=== PATIENT | female | born 1970 | race Two or more races ===

== ENCOUNTER 2019-05-14 05:36 | Emergency (ER) | payer MEDICARE, MEDICAID ==
[2019-05-14] MEDS ORDERED: METHOCARBAMOL 500 MG TABLET PO ONE (06:36)
[2019-05-14] MEDS ORDERED: LIDOCAINE 5% (700 MG) TRANSDERMAL ADH..PATCH TP ONE (06:37)
--- NOTE | 2019-05-14 06:45 | ER Document Report ---
HPI - HPI Patient complains to provider of: left buttocks pain Time Seen by Provider: 05/14/19 06:35 Pain Level: 5 Context: Patient is a 59-year-old female presents to the emergency department for left hip and buttocks pain. Patient is HIV positive, coronary artery disease, diabetes, degenerative disc disease, sees pain management for same. Patient states this evening she rolled over in bed and felt a muscle cramp in her left buttocks. Patient is complaining of generalized pain in her left buttocks radiating behind her left leg. Patient's denying any trauma or injury. Patient's denying any pain in the ASIS of her left hip. Patient's denying any numbness or tingling in any extremity. Patient's denying any urinary retention, loss of bowel or bladder. Patient states she did take 10 mg hydrocodone and a 15 mg morphine prior to ar rival to the emergency room. - REPRODUCTIVE Reproductive: DENIES: : - DERM Skin Color: Normal Past Medical History - General Information source: Patient - Social History Smoking Status: Current Every Day Smoker Family History: Reviewed & Not Pertinent Patient has suicidal ideation: No Patient has homicidal ideation: No - Past Medical History Cardiac Medical History: Reports: Hx Heart Attack Pulmonary Medical History: Reports: Hx COPD Endocrine Medical History: Reports: Hx Diabetes Mellitus Type 2 Renal/ Medical History: Denies: Hx Peritoneal Dialysis Vertical Provider Document - CONSTITUTIONAL Agree With Documented VS: Yes Notes: GENERAL: Alert, interacts well. No acute distress. HEAD: Normocephalic, atraumatic. EYES: Pupils equal, round, and reactive to light. Extraocular movements intact. ENT: Oral mucosa moist, tongue midline. NECK: Full range of motion. Supple. Trachea midline. LUNGS: Clear to auscultation bilaterally, no wheezes, rales, or rhonchi. No respiratory distress. HEART: Regular rate and rhythm. No murmur ABDOMEN: Soft, non-tender. Non-distended. Bowel sounds present in all 4 quadrants. EXTREMITIES: Moves all 4 extremities spontaneously. No edema, normal radial and dorsalis pedis pulses bilaterally. No cyanosis. 5 out of 5 strength noted all 4 extremities. No pain upon palpation bilateral ASIS. BACK: no cervical, thoracic, lumbar midline tenderness. No saddle anesthesia, normal distal neurovascular exam. Left paraspinal pain going into the left buttocks noted. NEUROLOGICAL: Alert and oriented x3. Normal speech. cranial nerves II through XII grossly intact PSYCH: Normal affect, normal mood. SKIN: Warm, dry, normal turgor. No rashes or lesions noted. - INFECTION CONTROL TRAVEL OUTSIDE OF THE [place] IN LAST 30 DAYS: No Course - Re-evaluation Re-evalutation: 05/14/19 06:40 Presentation of a well appearing patient complaining of acute on chronic back pain. No rapid progression of symptoms, systemic symptoms including fevers, chills, weight loss, history of recent bacterial infection, bilateral symptoms, numbness, weakness, difficulty walking, urinary retention or bowel incontinence, personal history of cancer, known AAA. Patient admits to previous IV drug abuse but states she has not used" over 10 years." Exam is without point tenderness over vertebral bodies, pulsatile abdominal mass, and patient has symmetric and intact lower extremity strength, sensation, and reflexes without clonus. 2+ symmetric medial malleolar and dorsalis pedis pulses Based on history and physical, I have a very low suspicion of a concerning etiology of pain including epidural compression syndrome, spinal infection, transverse myelitis, malignancy, abdominal aortic aneurysm, renal colic, acute lower extremity claudication, neurogenic claudication, ankylosing spondylitis, or other intra-abdominal process. Due to absence of concerning risk factors in history and physical as well as absence of rapidly progressive, severe, or bilateral symptoms, would like to defer imaging at this point, although balance staff inspector already ordered hip XRAY via protocol. Hip X-Ray 05/14/19 00:00 IMPRESSION: No evidence of acute osseous injury involving the pelvis or left hip. There is a 6 x 5 mm triangular-shaped calcification inferior to the left ischial tuberosity which may be related to chronic injury. Patient has already taken 10 mg hydrocodone and 15 mg of morphine prior to arrival to the emergency room. Patient states she is allergic to Motrin, aspirin. Discussed use of Robaxin and Lidoderm patches. At this time will discharge with return precautions and follow-up recommendations. Verbal discharge instructions given a the bedside and opportunity for questions given. Medication warnings reviewed. Patient is in agreement with this plan and has verbalized understanding of return precautions and the need for primary care follow-up in the next 24-72 hours. This medical record was dictated with voice recognizing software. There may be grammatical, syntax errors that are unintended. - Vital Signs Vital signs: Temp Pulse Resp BP Pulse Ox 97.9 F 102 H 19 95/61 L 97 05/14/19 05:41 05/14/19 05:41 05/14/19 06:01 05/14/19 06:00 05/14/19 06:01 Discharge - Discharge Clinical Impression: Left low back pain Condition: Stable Disposition: HOME, SELF-CARE Instructions: Chronic Back Pain ([facility]), Low Back Pain ([facility]) Additional Instructions: As we discussed you have been seen and treated in the emergency department for your left back and buttocks pain. Please make sure you are taking pain medications as prescribed. Please also make sure you are using muscle relaxers as prescribed. Please also buy [id number] Lidoderm patches for generalized pain relief. Please follow-up with your primary care provider in the next 24 to 48 hours. Please also follow-up with orthopedics, phone numbers will be provided. Please return to the emergency room for any further concerns. Prescriptions: Methocarbamol [Robaxin 500 mg Tablet] 1,000 mg PO TID #30 tablet Referrals: VICTORIA GEORGE MD [ACTIVE STAFF] - Follow up as needed
--- NOTE | 2019-05-14 07:33 | RADIOLOGY REPORT (SQ) ---
EXAM: X-ray hip two or more views CLINICAL DATA: 49-year-old female with tenderness TECHNICAL DATA: Two x-ray views of the pelvis and left hip were performed on 05/14/2019 at 6:49 AM. COMPARISONS: None FINDINGS: There is no evidence of fracture or dislocation. There is no significant arthritis or degenerative change. No focal lytic or sclerotic bone lesions are seen. There is a 6 x 5 mm triangular-shaped calcification inferior to the left ischial tuberosity. This may be related to chronic injury. Bone mineralization is normal. No acute soft tissue abnormalities are identified. IMPRESSION: No evidence of acute osseous injury involving the pelvis or left hip. There is a 6 x 5 mm triangular-shaped calcification inferior to the left ischial tuberosity which may be related to chronic injury.
[2019-05-14 08:04] VITALS: BP 104/55
== END 2019-05-14 08:04 | disposition home or self-care (01) ==
LOC: ER 05:36
DX: G89.29 Other chronic pain (principal); M54.5 Low back pain; M25.552 Pain in left hip; F17.200 Nicotine dependence, unspecified, uncomplicated; B20 Human immunodeficiency virus [HIV] disease; I25.10 Atherosclerotic heart disease of native coronary artery without angina pectoris; E11.9 Type 2 diabetes mellitus without complications; J44.9 Chronic obstructive pulmonary disease, unspecified; I25.2 Old myocardial infarction
CPT/HCPCS: 73502; A9270; 99283

== ENCOUNTER 2019-09-15 12:52 | Inpatient (IN) | payer MEDICARE, MEDICAID ==
[2019-09-15] MEDS ORDERED: NORMAL SALINE 1000 ML 1,000 ML IV ONE ×2 (13:11→18:00)
--- NOTE | 2019-09-15 13:13 | ER Document Report ---
ED Medical Screen (RME) - General Chief Complaint: Diarrhea Stated Complaint: DIARRHEA,DIZZINESS Time Seen by Provider: 09/15/19 13:08 Mode of Arrival: Wheelchair Information source: Patient Notes: This 49-year-old female with no past history reports to the emergency department with severe diarrhea. Reports this morning she has been incontinent of stool 4 times. Reports she has been vomiting diarrhea since . Denies recent antibiotics. Denies recent trip overseas. Denies past medical history of Crohn's or IBS. Denies trauma. Denies fever. Patient reports she is trying to drink fluids. Blood pressure low patient tachy. Patient reports this is never happened to her before. I have greeted and performed a rapid initial assessment of this patient. A comprehensive ED assessment and evaluation of the patient, analysis of test results and completion of the medical decision making process will be conducted by additional ED providers. Dictation of this chart was performed using voice recognition software; therefore, there may be some unintended grammatical errors. TRAVEL OUTSIDE OF THE [place] IN LAST 30 DAYS: No - Related Data Allergies/Adverse Reactions: aspirin Allergy (Verified 05/14/19 07:34) Penicillins Allergy (Verified 05/14/19 07:34) Past Medical History - Past Medical History Cardiac Medical History: Reports: Hx Heart Attack Pulmonary Medical History: Reports: Hx COPD Endocrine Medical History: Reports: Hx Diabetes Mellitus Type 2 Renal/ Medical History: Denies: Hx Peritoneal Dialysis Physical Exam - Vital signs Vitals: Temp Pulse Resp BP Pulse Ox 97.6 F 124 H 18 79/52 L 94 09/15/19 12:56 09/15/19 12:56 09/15/19 12:56 09/15/19 12:56 09/15/19 12:56 Course - Vital Signs Vital signs: Temp Pulse Resp BP Pulse Ox 97.6 F 124 H 18 79/52 L 94 09/15/19 12:56 09/15/19 12:56 09/15/19 12:56 09/15/19 12:56 09/15/19 12:56
[2019-09-15] MEDS ORDERED: ONDANSETRON HCL INJ/PF 4 MG/2 ML SDV IV ONE (13:29)
[2019-09-15] MEDS ORDERED: NORMAL SALINE 1000 ML 2,000 ML IV ONE (13:29)
--- NOTE | 2019-09-15 13:51 | ER Document Report ---
ED General - General Chief Complaint: Low Blood Pressure Stated Complaint: DIARRHEA,DIZZINESS Time Seen by Provider: 09/15/19 13:08 Mode of Arrival: Wheelchair Notes: Ms. Rajput is a 49-year-old female with HIV on HAART, hyperlipidemia, previous CA w/ [address] and diabetes presenting to the ED for diarrhea and dizziness. Patient states the diarrhea began but acutely worsened today. Between and Tuesday she had a total of 6 episodes of diarrhea. She also had 2 episodes of vomiting at that point in time. However today alone, she is had at least 6 episodes of nonbloody diarrhea. Patient states her last CD4 count was 900 and her viral load was undetectable. She denies any known ill contacts or recent travel. She states she was placed on antibiotics in the beginning of August for dental infection (amoxicillin). TRAVEL OUTSIDE OF THE [place] IN LAST 30 DAYS: No - Related Data Allergies/Adverse Reactions: aspirin Allergy (Verified 09/15/19 14:05) Penicillins Allergy (Verified 09/15/19 14:05) iv dye Allergy (Uncoded 09/15/19 14:05) Past Medical History - General Information source: Patient - Social History Smoking Status: Current Every Day Smoker Frequency of alcohol use: None Drug Abuse: None Family History: Reviewed & Not Pertinent Patient has suicidal ideation: No Patient has homicidal ideation: No - Past Medical History Cardiac Medical History: Reports: Hx Heart Attack, Hx Hypercholesterolemia Pulmonary Medical History: Reports: Hx COPD Endocrine Medical History: Reports: Hx Diabetes Mellitus Type 2 Renal/ Medical History: Denies: Hx Peritoneal Dialysis Past Surgical History: Reports: Hx Cardiac Catheterization, Hx Cardiac Surgery - stent Physical Exam - Vital signs Vitals: Temp Pulse Resp BP Pulse Ox 97.6 F 124 H 18 79/52 L 94 09/15/19 12:56 09/15/19 12:56 09/15/19 12:56 09/15/19 12:56 09/15/19 12:56 Course - Re-evaluation Re-evalutation: Patient is ill-appearing but nontoxic. Initial vitals notable for tachycardia and hypotension. Differential diagnosis includes sepsis, dehydration, electrolyte abnormality, immunocompromise state 09/15/19 13:48 Blood cultures, lactic acid were added onto basic labs. Patient ordered for 2 L of fluid. Plan to obtain CT abdomen pelvis with p.o. contrast only given her allergy to IVP. Patient also ordered for Zofran for nausea. Given the patient's immunocompromised state (HIV), stool cultures and stool samples were also ordered for other pathogenic process. 14:25 Patient ordered for a total of 3 L of IV fluids. She already completed 2 L at this point in time. CBC does not show significant leukocytosis or left shift. H&H is stable and patient appears to be hemoconcentrated with hemoglobin greater than 15. CMP notable for creatinine of 1.97 with a BUN of 29 consistent with dehydration. Patient has no known history of kidney disease and her GFR currently is 27. UA pending. Patient feels improved in terms of her dizziness. Given her initially persistent hypotension, pt ordered for broad spec abx w/ ceftaz/flagyl. 09/15/19 15:10 Discussed with admitting provider Duong. Recommended admission to Dr. Hsieh. 09/15/19 15:[address] Hsieh. 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 09/15/19 16:[address] negative for acute abdominal process. No significant lactic acidosis. Likely hypotension related to pre-renal dehydration and volume loss. 09/15/19 16:[address] Hsieh again. 09/15/19 16:[address] Hsieh. - Vital Signs Vital signs: Temp Pulse Resp BP Pulse Ox 97.6 F 124 H 11 L 72/41 L 97 09/15/19 13:29 09/15/19 12:56 09/15/19 14:01 09/15/19 14:00 09/15/19 14:01 - Laboratory Result Diagrams: 09/15/19 13:15 09/15/19 13:15 Laboratory results interpreted by me: 09/15/19 09/15/19 09/15/19 13:15 13:15 14:12 Hgb 15.9 H BUN 29 H Creatinine 1.97 H Est GFR ( Amer) 32 L Est GFR (MDRD) Non-Af 27 L Glucose 122 H AST 134 H Urine Protein 100 H Urine Ketones TRACE H Urine Bilirubin SMALL H Urine Urobilinogen 2.0 H Ur Leukocyte Esterase TRACE H - EKG Interpretation by Ak EKG shows normal: Sinus rhythm, [place], QRS Complexes, ST-T Waves Rate: Normal Voltage: Decreased voltage, Throughout Heart block present: 1st Degree When compared to previous EKG there are: Previous EKG unavailable Critical Care Note - Critical Care Note Total time excluding time spent on procedures (mins): 45 - Multiple etiologies considered including infectious such as sepsis, dehydration, electrolyte abnormality, and acute intra-abdominal process. Patient required multiple evaluation given persistent hypotension. Broad-spectrum antibiotics as well as 3 L of fluids administered. Discharge - Discharge Clinical Impression: Nausea vomiting and diarrhea, WAI (acute kidney injury), Dehydration Hypotension Qualifiers: Hypotension type: hypotension due to hypovolemia Qualified Code(s): I95.89 - Other hypotension Condition: Good Disposition: ADMITTED INPATIENT Admitting Provider: Jori (Hospitalist) Unit Admitted: IMCU ED Sepsis - Sepsis Documentation Sepsis Patient: No - Vital Signs Interpretation: Normal - Cardiovascular Peripheral Pulse Strength: Normal Capillary refill: < 3 seconds Rhythm: Regular Heart Sounds: Normal auscultation
[2019-09-15 13:57] LABS: ABSOLUTE LYMPHOCYTES (AUTO) 1.4 10^3/uL (0.5-4.7); ABSOLUTE MONOCYTES (AUTO) 0.7 10^3/uL (0.1-1.4); ABSOLUTE NEUT (AUTO) 5.5 10^3/uL (1.7-8.2); BASOPHILS % (AUTO) 0.3 % (0-2); EOSINOPHILS % (AUTO) 0.3 % (0-6); HEMATOCRIT 45.8 % (36.0-47.0); HEMOGLOBIN 15.9 g/dL (12.0-15.5); LYMPHOCYTES % (AUTO) 18.6 % (13-45); MEAN CORPUSCULAR HEMOGLOBIN 32.6 pg (27.0-33.4); MEAN CORPUSCULAR HGB CONC 34.7 g/dL (32.0-36.0); MEAN CORPUSCULAR VOLUME 94 fl (80-97); PLATELET COUNT 203 10^3/uL (150-450); RED BLOOD COUNT 4.86 10^6/uL (3.72-5.28); RED CELL DISTRIBUTION WIDTH 12.6 % (11.5-14.0); SEGMENTED NEUTROPHILS % (AUTO) 71.8 % (42-78); TOTAL CELLS COUNTED % (AUTO) 100 %; WHITE BLOOD COUNT 7.6 10^3/uL (4.0-10.5)
[2019-09-15 14:10] LABS: ALBUMIN 4.2 g/dL (3.5-5.0); ALKALINE PHOSPHATASE 69 U/L (38-126); ANION GAP 15 (5-19); ASPARTATE AMINO TRANSFERASE 134 U/L (14-36); BILIRUBIN,DIRECT 0.2 mg/dL (0.0-0.4); BILIRUBIN,TOTAL 0.4 mg/dL (0.2-1.3); BLOOD UREA NITROGEN 29 mg/dL (7-20); CALCIUM 9.3 mg/dL (8.4-10.2); CARBON DIOXIDE 24 mmol/L (22-30); CHLORIDE 99 mmol/L (98-107); GLUCOSE 122 mg/dL (75-110); POTASSIUM 4.3 mmol/L (3.6-5.0); TOTAL PROTEIN 7.1 g/dL (6.3-8.2)
[2019-09-15] MEDS ORDERED: CEFTAZIDIME INJ 1 GM VIAL IV ONE (14:16)
[2019-09-15] MEDS: METRONIDAZOLE 500 MG/NS RTU 500 MG/100 ML RTUPB IV SCH ×2 (14:50→17:59)
--- NOTE | 2019-09-15 14:54 | EKG REPORT ---
SEVERITY:- ABNORMAL ECG - SINUS RHYTHM FIRST DEGREE AV BLOCK LOW VOLTAGE IN FRONTAL LEADS NONSPECIFIC T ABNORMALITIES, ANT-LAT LEADS : Confirmed by: Rad Jaimes MD 15-Sep-2019 14:53:35
[2019-09-15 15:19] LABS: APPEARANCE,URINE CLOUDY; BILIRUBIN,URINE SMALL (NEGATIVE); COLOR,URINE AMBER; GLUCOSE, URINE NEGATIVE (NEGATIVE); KETONES,URINE TRACE mg/dL (NEGATIVE); LEUKOCYTE ESTERASE,URINE TRACE (NEGATIVE); NITRITE,URINE NEGATIVE (NEGATIVE); PROTEIN,URINE 100 mg/dL (NEGATIVE); URINE SPECIFIC GRAVITY 1.028
--- NOTE | 2019-09-15 16:10 | RADIOLOGY REPORT (SQ) ---
EXAM DESCRIPTION: CT ABD/PELVIS ORAL ONLY COMPLETED DATE/TIME: 09/15/2019 3:57 pm REASON FOR STUDY: hypotensive, abd pain, vomiting diarrhea COMPARISON: None. TECHNIQUE: CT scan of the abdomen and pelvis performed with oral contrast and no intravenous contras t. Images reviewed with lung, soft tissue, and bone windows. Reconstructed coronal and sagittal MPR i mages reviewed. All images stored on PACS. All CT scanners at this facility use dose modulation, iterative reconstruction, and/or weight based d osing when appropriate to reduce radiation dose to as low as reasonably achievable (ALARA). [facility]: Dose Right [facility]: CareDose [facility]: Dose Right [facility]: Teradose 4D [facility]: Smart Mixpanel RADIATION DOSE: CT Rad equipment meets quality standard of care and radiation dose reduction techniq ues were employed. CTDIvol: 7.9 mGy. DLP: 424 mGy-cm.mGy. LIMITATIONS: None. FINDINGS: LOWER CHEST: No significant findings. No nodules or infiltrates. NON-CONTRASTED LIVER, SPLEEN, ADRENALS: Evaluation limited by lack of IV contrast. No identified sign ificant masses. PANCREAS: No masses. No peripancreatic inflammatory changes. GALLBLADDER: Surgically absent. RIGHT KIDNEY AND URETER: No solid masses. No significant calcification. No hydronephrosis or hydroure ter. LEFT KIDNEY AND URETER: No solid masses. No significant calcification. No hydronephrosis or hydrouret er. AORTA AND RETROPERITONEUM: No aneurysm. No retroperitoneal masses or adenopathy. BOWEL AND PERITONEAL CAVITY: No obvious masses or inflammatory changes. No free fluid. APPENDIX: Not visualized. PELVIS, BLADDER, AND ABDOMINAL WALL: No abnormal pelvic masses. No abdominal wall hernias. Bladder un remarkable. BONES: No significant findings. OTHER: No other significant finding. IMPRESSION: NO SIGNIFICANT OR ACUTE ABDOMINAL PROCESS. TECHNICAL DOCUMENTATION: JOB ID: [id number] Quality ID # [id number]: Final reports with documentation of one or more dose reduction techniques (e.g., Au tomated exposure control, adjustment of the mA and/or kV according to patient size, use of iterative reconstruction technique) 2010 [employer]- All Rights Reserved Reading location - IP/workstation name: [facility]
[2019-09-15] MEDS ORDERED: ACETAMINOPHEN 325 MG TABLET PO PRN (17:51)
[2019-09-15] MEDS ORDERED: MAG HYDROX/AL HYDROX/SIMETH SUSP 30 ML UDCUP PO PRN (17:51)
[2019-09-15] MEDS ORDERED: ONDANSETRON HCL INJ/PF 4 MG/2 ML SDV IV PRN (17:51)
[2019-09-15] MEDS ORDERED: TEMAZEPAM 15 MG CAPSULE PO PRN (17:51)
[2019-09-15] MEDS ORDERED: DEXTROSE 50%-WATER 25 GM/50 ML DISP.SYRIN IV PRN ×2 (18:01)
[2019-09-15] MEDS ORDERED: GLUCAGON,HUMAN RECOMB 1 MG INJ IM PRN (18:01)
[2019-09-15] MEDS ORDERED: DEXTROSE 40% GEL 15 GM TUBE PO PRN ×2 (18:01)
--- NOTE | 2019-09-15 18:07 | PDOC H&P ---
History of Present Illness Admission Date/PCP: 09/15/19 16:47 LETTY BIRMINGHAM NP Patient complains of: Diarrhea History of Present Illness: BELGICA YADAV is a 49 year old female HIV-positive who presents with diarrhea. Patient states 2 episodes of vomiting and 6 episodes of nonbloody diarrhea over the last 2 days. Patient states her last CD4 count was 900 viral load was undetectable. Patient states she was placed on antibiotics again in August for dental infection however that has had no other complications. Patient is on HAART for her HIV and has a history of hyperlipidemia as well. She does have a history of diabetes and CAD as well. She has had no treatment prior to arrival all oral intakes been aggravating factor. Past Medical History Cardiac Medical History: Reports: Myocardial Infarction, Hyperlipidema Pulmonary Medical History: Reports: Chronic Obstructive Pulmonary Disease (COPD) Endocrine Medical History: Reports: Diabetes Mellitus Type 2 Past Surgical History Past Surgical History: Reports: Cardiac Catheterization Social History Information Source: Patient Lives with: Family Smoking Status: Current Every Day Smoker Electronic Cigarette use?: No Frequency of Alcohol Use: None Hx Recreational Drug Use: No Drugs: None Hx Prescription Drug Abuse: No - Advance Directive Resuscitation Status: Full Code Family History Family History: DM, Hypertension Parental Family History Reviewed: Yes Children Family History Reviewed: Yes Sibling(s) Family History Reviewed.: Yes Medication/Allergy Home Medications: Methocarbamol [Robaxin 500 mg Tablet] 1,000 mg PO TID #30 tablet 05/14/19 Allergies/Adverse Reactions: aspirin Allergy (Verified 09/15/19 14:05) Penicillins Allergy (Verified 09/15/19 14:05) iv dye Allergy (Uncoded 09/15/19 14:05) Review of Systems Constitutional: ABSENT: chills, fever(s), headache(s), weight gain, weight loss Eyes: ABSENT: visual disturbances Ears: ABSENT: hearing changes Cardiovascular: ABSENT: chest pain, dyspnea on exertion, edema, orthropnea, palpitations Respiratory: ABSENT: cough, hemoptysis Gastrointestinal: PRESENT: diarrhea, nausea, vomiting. ABSENT: abdominal pain, constipation, hematemesis, hematochezia Genitourinary: ABSENT: dysuria, hematuria Musculoskeletal: ABSENT: joint swelling Integumentary: ABSENT: rash, wounds Neurological: PRESENT: dizziness. ABSENT: abnormal gait, abnormal speech, confusion, focal weakness, syncope Psychiatric: ABSENT: anxiety, depression, homidical ideation, suicidal ideation Endocrine: ABSENT: cold intolerance, heat intolerance, polydipsia, polyuria Hematologic/Lymphatic: ABSENT: easy bleeding, easy bruising Physical Exam Vital Signs: Temp Pulse Resp BP Pulse Ox 97.7 F 87 15 87/64 L 97 09/15/19 17:42 09/15/19 17:42 09/15/19 17:42 09/15/19 17:42 09/15/19 17:30 Intake & Output 09/14/19 09/15/19 09/16/19 06:59 06:59 06:59 Intake Total 3100 Balance 3100 Weight 68.039 kg General appearance: PRESENT: no acute distress, well-developed, well-nourished Head exam: PRESENT: atraumatic, normocephalic Eye exam: PRESENT: conjunctiva pink, EOMI, PERRLA. ABSENT: scleral icterus Ear exam: PRESENT: normal external ear exam Mouth exam: PRESENT: moist, tongue midline Neck exam: ABSENT: carotid bruit, JVD, lymphadenopathy, thyromegaly Respiratory exam: PRESENT: clear to auscultation constantino. ABSENT: rales, rhonchi, wheezes Cardiovascular exam: PRESENT: RRR. ABSENT: diastolic murmur, rubs, systolic murmur Pulses: PRESENT: normal dorsalis pedis pul Vascular exam: PRESENT: normal capillary refill GI/Abdominal exam: PRESENT: normal bowel sounds, soft. ABSENT: distended, guarding, mass, organolmegaly, rebound, tenderness Rectal exam: PRESENT: deferred Extremities exam: PRESENT: full ROM. ABSENT: calf tenderness, clubbing, pedal edema Neurological exam: PRESENT: alert, awake, oriented to person, oriented to place, oriented to time, oriented to situation, CN II-XII grossly intact. ABSENT: motor sensory deficit Psychiatric exam: PRESENT: appropriate affect, normal mood. ABSENT: homicidal ideation, suicidal ideation Skin exam: PRESENT: dry, intact, warm. ABSENT: cyanosis, rash Results Laboratory Results: 09/15/19 13:15 09/15/19 13:15 09/15/19 09/15/19 09/15/19 13:15 13:15 14:12 WBC 7.6 RBC 4.86 Hgb 15.9 H Hct 45.8 MCV 94 MCH 32.6 MCHC 34.7 RDW 12.6 Plt Count 203 Seg Neutrophils % 71.8 Sodium 137.8 Potassium 4.3 Chloride 99 Carbon Dioxide 24 Anion Gap 15 BUN 29 H Creatinine 1.97 H Est GFR ( Amer) 32 L Glucose 122 H Calcium 9.3 Total Bilirubin 0.4 AST 134 H Alkaline Phosphatase 69 Total Protein 7.1 Albumin 4.2 Lipase 58.2 Urine Color ANJANA Urine Appearance CLOUDY Urine pH 5.0 Ur Specific [place] 1.028 Urine Protein 100 H Urine Glucose (UA) NEGATIVE Urine Ketones TRACE H Urine Blood NEGATIVE Urine Nitrite NEGATIVE Ur Leukocyte Esterase TRACE H Urine WBC (Auto) 17 Urine RBC (Auto) 2 09/15/19 13:15 Troponin I < 0.012 Impressions: Abdomen/Pelvis CT 09/15/19 13:29 IMPRESSION: NO SIGNIFICANT OR ACUTE ABDOMINAL PROCESS. Assessment and Plan - Diagnosis (1) WAI (acute kidney injury) Is this a current diagnosis for this admission?: Yes Plan: 09/15/2019-admit to IMCU. Patient did receive 3 L normal saline bolus in the ER. I will continue normal saline at 175 mL/h. Repeat BMP in a.m. Initial creatinine and BUN 1.9 and 29. (2) Dehydration Is this a current diagnosis for this admission?: Yes Plan: 09/15/2019-see 1 (3) Hypotension Qualifiers: Hypotension type: hypotension due to hypovolemia Qualified Code(s): I95.89 - Other hypotension; E86.1 - Hypovolemia Is this a current diagnosis for this admission?: Yes Plan: 09/15/2019-I believe this secondary to dehydration. Patient has been adequately hydrated blood pressure seem to be titrating up. We will add low-dose vaso pressors as needed. (4) Nausea vomiting and diarrhea Is this a current diagnosis for this admission?: Yes Plan: 09/15/2019-C. difficile pending. Zofran for nausea and vomiting. Place patient on Cipro 400 mg IV twice daily and Flagyl 500 mg every 6 hours in case there is some component of colitis causing this diarrhea. (5) HIV positive Is this a current diagnosis for this admission?: Yes Plan: 09/15/2019-continue all home HIV medications once medication reconciliation has been completed - Time Time Spent with patient: 35 or more minutes - Inpatient Certification Based on my medical assessment, after consideration of the patient's comorbidities, presenting symptoms, or acuity I expect that the services needed warrant INPATIENT care.: Yes I certify that my determination is in accordance with my understanding of Medicare's requirements for reasonable and necessary INPATIENT services [42 CFR 412.3e].: Yes Medical Necessity: Significant Comorbidiites Make Outpatient Treatment Too Risky, Need Close Monitoring Due to Risk of Patient Decompensation, Need For IV Fluids, Need for IV Antibiotics
--- NOTE | 2019-09-15 18:46 | PDOC CONSULTATION ---
Consultation Consult Date: 09/15/19 Attending physician:: STEPHANIE GAMBLE Provider Consulted: NELA SANDERS Consult reason:: Concern for hypotension/possible need for ICU History of Present Illness Admission Date/PCP: 09/15/19 16:47 LETTY BIRMINGHAM NP History of Present Illness: BELGICA YADAV is a 49 year old female who complains of weakness and fatigue. The patient also has vague lower abdominal pain and has been having numerous loose bowel movements for the last few days. Of note, she is HIV positive on HAART therapy and being followed regularly. Upon arrival to the ER today she was orthostatic and her initial BP was in the 60's. With hydration and remaining in the supine position her SBP improved to the 90's eventually and her MAP remains >65. She was admitted to the hospitalist service but there was concern that she may be septic and might require ICU intervention. Past Medical History Cardiac Medical History: Reports: Myocardial Infarction, Hyperlipidema Pulmonary Medical History: Reports: Chronic Obstructive Pulmonary Disease (COPD) Endocrine Medical History: Reports: Diabetes Mellitus Type 2 Psychiatric Medical History: Reports: Depression Past Surgical History Past Surgical History: Reports: Cardiac Catheterization Social History Lives with: Family Smoking Status: Current Every Day Smoker Cigarettes Packs Per Day: 1 Electronic Cigarette use?: No Frequency of Alcohol Use: None Hx Recreational Drug Use: No Drugs: None Hx Prescription Drug Abuse: No - Advance Directive Resuscitation Status: Full Code Family History Family History: DM, Hypertension Parental Family History Reviewed: No Children Family History Reviewed: Unknown Sibling(s) Family History Reviewed.: Unknown Medication/Allergy Home Medications: Methocarbamol [Robaxin 500 mg Tablet] 1,000 mg PO TID #30 tablet 05/14/19 Allergies/Adverse Reactions: aspirin Allergy (Verified 09/15/19 18:33) Anaphylaxis chicken derived Allergy (Verified 09/15/19 18:33) Anaphylaxis egg Allergy (Verified 09/15/19 18:34) Anaphylaxis Egg Derived Allergy (Verified 09/15/19 18:34) Anaphylaxis Penicillins Allergy (Verified 09/15/19 18:33) Anaphylaxis turkey Allergy (Verified 09/15/19 18:34) Anaphylaxis iv dye Allergy (Uncoded 09/15/19 18:33) Anaphylaxis Review of Systems All systems: as per PMH Physical Exam Vital Signs: Temp Pulse Resp BP Pulse Ox 97.2 F 88 17 91/57 L 99 12/14/19 18:03 09/15/19 18:03 09/15/19 18:03 09/15/19 18:03 09/15/19 18:03 Intake & Output 09/14/19 09/15/19 09/16/19 06:59 06:59 06:59 Intake Total 3340 Output Total 0 Balance 3340 Weight 75.4 kg General appearance: PRESENT: no acute distress, well-developed, well-nourished Eye exam: PRESENT: conjunctiva pink, EOMI, PERRLA. ABSENT: scleral icterus Ear exam: PRESENT: normal external ear exam Mouth exam: PRESENT: dry mucosa Throat exam: ABSENT: post pharyngeal erythema Neck exam: PRESENT: full ROM. ABSENT: carotid bruit, JVD, lymphadenopathy, thyromegaly Respiratory exam: PRESENT: clear to auscultation constantino, symmetrical. ABSENT: accessory muscle use, rales, rhonchi, wheezes Cardiovascular exam: PRESENT: RRR. ABSENT: bradycardia, diastolic murmur, systolic murmur Pulses: PRESENT: normal radial pulses, normal dorsalis pedis pul, +2 pedal pulses bilateral Vascular exam: PRESENT: normal capillary refill. ABSENT: pallor GI/Abdominal exam: PRESENT: other - Soft, minimal tenderness over her bladder. No rebound, no guarding, no peritoneal signs. Rectal exam: PRESENT: deferred Extremities exam: PRESENT: full ROM. ABSENT: calf tenderness, joint swelling, pedal edema Musculoskeletal exam: PRESENT: full ROM. ABSENT: deformity Neurological exam: PRESENT: alert, awake, oriented to person, oriented to place, oriented to time, oriented to situation, CN II-XII grossly intact. ABSENT: motor sensory deficit Psychiatric exam: PRESENT: appropriate affect Skin exam: PRESENT: dry, warm Results Laboratory Results: 09/15/19 13:15 09/15/19 13:15 09/15/19 09/15/19 09/15/19 13:15 13:15 14:12 WBC 7.6 RBC 4.86 Hgb 15.9 H Hct 45.8 MCV 94 MCH 32.6 MCHC 34.7 RDW 12.6 Plt Count 203 Seg Neutrophils % 71.8 Sodium 137.8 Potassium 4.3 Chloride 99 Carbon Dioxide 24 Anion Gap 15 BUN 29 H Creatinine 1.97 H Est GFR ( Amer) 32 L Glucose 122 H Calcium 9.3 Total Bilirubin 0.4 AST 134 H Alkaline Phosphatase 69 Total Protein 7.1 Albumin 4.2 Lipase 58.2 Urine Color ANJANA Urine Appearance CLOUDY Urine pH 5.0 Ur Specific [place] 1.028 Urine Protein 100 H Urine Glucose (UA) NEGATIVE Urine Ketones TRACE H Urine Blood NEGATIVE Urine Nitrite NEGATIVE Ur Leukocyte Esterase TRACE H Urine WBC (Auto) 17 Urine RBC (Auto) 2 09/15/19 13:15 Troponin I < 0.012 Impressions: Abdomen/Pelvis CT 09/15/19 13:29 IMPRESSION: NO SIGNIFICANT OR ACUTE ABDOMINAL PROCESS. Assessment & Plan - Diagnosis (1) WAI (acute kidney injury) Is this a current diagnosis for this admission?: Yes Plan: As per primary. Continue with hydration and electrolyte monitoring. Baseline Cr. unknown. (2) Dehydration Is this a current diagnosis for this admission?: Yes Plan: Continue hydration as per primary team (3) HIV positive Is this a current diagnosis for this admission?: Yes Plan: As per primary team (4) Hypotension Qualifiers: Hypotension type: hypotension due to hypovolemia Qualified Code(s): I95.89 - Other hypotension; E86.1 - Hypovolemia Is this a current diagnosis for this admission?: Yes (5) Nausea vomiting and diarrhea Is this a current diagnosis for this admission?: Yes Plan: Zofran, Phenergan and hydration - Time Time Spent with patient: 30 Time Spent: 50 to 70 Minutes Medications reviewed and adjusted accordingly: Yes - Plan Summary Plan Summary: 49yo F with mild abdominal pain (though unimpressive exam and normal CT scan) in the setting of numerous loose stools and hypotension. As she is immunocompromised would be concerned for possible C-dificile infection despite normal WBC. Recommend stool testing. Would continue with hydration and may also consider cortisol test to determine if the patient has any evidence of adrenal insufficiency. No need for ICU level of care at this time. Thank you for this consult, we are available should her condition change.
[2019-09-15] MEDS: NORMAL SALINE 1000 ML 1,000 ML IV PRN (19:26)
[2019-09-15] MEDS: INSULIN REG, HUMAN 100 UNIT/ML 3 ML VIAL (PYX) SUBCUT SCH (21:08)
[2019-09-15] MEDS: CIPROFLOXACIN 400 MG/D5W RTU 400 MG/200 ML RTUPB IV SCH (21:13)
[2019-09-15] MEDS: PANTOPRAZOLE SODIUM 40 MG VIAL IV SCH (21:13)
[2019-09-15] MEDS: NICOTINE 21 MG/24 HR PATCH.TD24 TD SCH (21:13)
[2019-09-16] MEDS: METRONIDAZOLE 500 MG/NS RTU 500 MG/100 ML RTUPB IV SCH ×5 (01:16→23:51)
[2019-09-16] MEDS: NORMAL SALINE 1000 ML 1,000 ML IV PRN ×3 (03:15→23:51)
[2019-09-16] MEDS: HYDROMORPHONE HCL INJ/PF 2 MG/ML AMPULE IV PRN ×3 (03:16→19:32)
[2019-09-16 05:48] LABS: HEMATOCRIT 35.2 % (36.0-47.0); MEAN CORPUSCULAR HGB CONC 34.8 g/dL (32.0-36.0); MEAN CORPUSCULAR VOLUME 95 fl (80-97); PLATELET COUNT 134 10^3/uL (150-450); RED BLOOD COUNT 3.71 10^6/uL (3.72-5.28); RED CELL DISTRIBUTION WIDTH 12.4 % (11.5-14.0)
[2019-09-16 05:56] LABS: HEMOGLOBIN 12.2 g/dL (12.0-15.5)
[2019-09-16 05:59] LABS: PHOSPHORUS 3.5 mg/dL (2.5-4.5)
[2019-09-16] MEDS: INSULIN REG, HUMAN 100 UNIT/ML 3 ML VIAL (PYX) SUBCUT SCH ×4 (08:33→21:09)
--- NOTE | 2019-09-16 09:15 | PDOC PROGRESS REPORT ---
Subjective Progress Note for:: 09/16/19 Subjective:: 09/16/2019-no complaints this a.m. Reason For Visit: ACUTE KIDNEY INJURY, DIARRHEA, HIV Physical Exam Vital Signs: Temp Pulse Resp BP Pulse Ox 97.5 F 83 20 80/47 L 93 09/16/19 04:01 09/16/19 07:00 09/16/19 04:01 09/16/19 04:01 09/16/19 04:01 Intake & Output 09/15/19 09/16/19 09/17/19 06:59 06:59 06:59 Intake Total 5962 Output Total 0 Balance 5962 Weight 76.8 kg General appearance: PRESENT: no acute distress, well-developed, well-nourished Neck exam: ABSENT: carotid bruit, JVD, lymphadenopathy, thyromegaly Respiratory exam: PRESENT: clear to auscultation constantino. ABSENT: rales, rhonchi, wheezes Cardiovascular exam: PRESENT: RRR. ABSENT: diastolic murmur, rubs, systolic murmur Pulses: PRESENT: normal dorsalis pedis pul Vascular exam: PRESENT: normal capillary refill GI/Abdominal exam: PRESENT: normal bowel sounds, soft. ABSENT: distended, guarding, mass, organolmegaly, rebound, tenderness Extremities exam: PRESENT: full ROM. ABSENT: calf tenderness, clubbing, pedal edema Neurological exam: PRESENT: alert, awake, oriented to person, oriented to place, oriented to time, oriented to situation, CN II-XII grossly intact. ABSENT: motor sensory deficit Psychiatric exam: PRESENT: appropriate affect, normal mood. ABSENT: homicidal ideation, suicidal ideation Skin exam: PRESENT: dry, intact, warm. ABSENT: cyanosis, rash Results Laboratory Results: 09/16/19 05:10 09/15/19 13:15 09/15/19 09/15/19 09/15/19 03:22 13:15 13:15 WBC 7.6 RBC 4.86 Hgb 15.9 H Hct 45.8 MCV 94 MCH 32.6 MCHC 34.7 RDW 12.6 Plt Count 203 Seg Neutrophils % 71.8 Sodium 137.8 Potassium 4.3 Chloride 99 Carbon Dioxide 24 Anion Gap 15 BUN 29 H Creatinine 1.97 H Est GFR ( Amer) 32 L Glucose 122 H Calcium 9.3 Phosphorus Magnesium Total Bilirubin 0.4 AST 134 H Alkaline Phosphatase 69 Total Protein 7.1 Albumin 4.2 Lipase 58.2 Urine Color Urine Appearance Urine pH Ur Specific [place] Urine Protein Urine Glucose (UA) Urine Ketones Urine Blood Urine Nitrite Ur Leukocyte Esterase Urine WBC (Auto) Urine RBC (Auto) Stool for White Cells NO WBCs SEEN 09/15/19 09/16/19 09/16/19 14:12 05:10 05:10 WBC 4.0 RBC 3.71 L Hgb 12.2 D Hct 35.2 L MCV 95 MCH 33.0 MCHC 34.8 RDW 12.4 Plt Count 134 L Seg Neutrophils % Sodium Potassium Chloride Carbon Dioxide Anion Gap BUN Creatinine Est GFR ( Amer) Glucose Calcium Phosphorus 3.5 Magnesium 1.6 Total Bilirubin AST Alkaline Phosphatase Total Protein Albumin Lipase Urine Color ANJANA Urine Appearance CLOUDY Urine pH 5.0 Ur Specific [place] 1.028 Urine Protein 100 H Urine Glucose (UA) NEGATIVE Urine Ketones TRACE H Urine Blood NEGATIVE Urine Nitrite NEGATIVE Ur Leukocyte Esterase TRACE H Urine WBC (Auto) 17 Urine RBC (Auto) 2 Stool for White Cells 09/15/19 13:15 Troponin I < 0.012 Impressions: Abdomen/Pelvis CT 09/15/19 13:29 IMPRESSION: NO SIGNIFICANT OR ACUTE ABDOMINAL PROCESS. Assessment and Plan - Diagnosis (1) WAI (acute kidney injury) Is this a current diagnosis for this admission?: Yes Plan: 09/15/2019-admit to [facility]. Patient did receive 3 L normal saline bolus in the ER. I will continue normal saline at 175 mL/h. Repeat BMP in a.m. Initial creatinine and BUN 1.9 and 29. 09/16/2019-awaiting a.m. labs. I have decreased IV fluids 100 mL/h. I will make further changes based on diagnostic findings. (2) Dehydration Is this a current diagnosis for this admission?: Yes Plan: 09/15/2019-see 1 09/16/2019-see #1 (3) Hypotension Qualifiers: Hypotension type: hypotension due to hypovolemia Qualified Code(s): I95.89 - Other hypotension; E86.1 - Hypovolemia Is this a current diagnosis for this admission?: Yes Plan: 09/15/2019-I believe this secondary to dehydration. Patient has been adequately hydrated blood pressure seem to be titrating up. We will add low-dose vasopressors as needed. 09/16/2019-patient remains in the 80s 90 systolic range but asymptomatic. We will continue hydration and follow (4) Nausea vomiting and diarrhea Is this a current diagnosis for this admission?: Yes Plan: 09/15/2019-C. difficile pending. Zofran for nausea and vomiting. Place patient on Cipro 400 mg IV twice daily and Flagyl 500 mg every 6 hours in case there is some component of colitis causing this diarrhea. 09/16/2019-C. difficile pending. Continue current therapy including Flagyl. Make changes based on findings (5) HIV positive Is this a current diagnosis for this admission?: Yes Plan: 09/15/2019-continue all home HIV medications once medication reconciliation has been completed 09/16/2019-all HIV medications have been resumed - Time Time Spent with patient: 15-24 minutes - Inpatient Certification Based on my medical assessment, after consideration of the patient's comorbidities, presenting symptoms, or acuity I expect that the services needed warrant INPATIENT care.: Yes I certify that my determination is in accordance with my understanding of Medicare's requirements for reasonable and necessary INPATIENT services [42 CFR 412.3e].: Yes Medical Necessity: Need For IV Fluids, Need for IV Antibiotics
[2019-09-16] MEDS: CIPROFLOXACIN 400 MG/D5W RTU 400 MG/200 ML RTUPB IV SCH ×2 (09:20→21:18)
[2019-09-16] MEDS: PANTOPRAZOLE SODIUM 40 MG VIAL IV SCH ×2 (09:20→21:18)
[2019-09-16 09:40] LABS: ANION GAP 8 (5-19); BLOOD UREA NITROGEN 12 mg/dL (7-20); CALCIUM 7.3 mg/dL (8.4-10.2); CARBON DIOXIDE 19 mmol/L (22-30); CHLORIDE 112 mmol/L (98-107); GLUCOSE 74 mg/dL (75-110); POTASSIUM 3.7 mmol/L (3.6-5.0)
[2019-09-16 10:31] LABS: C DIFFICILE GDH NEGATIVE (NEGATIVE)
[2019-09-16] MEDS: VANCOMYCIN HCL INJ 500 MG VIAL PO SCH ×2 (15:13→23:51)
[2019-09-16] MEDS: DULOXETINE HCL 30 MG CAPSULE.DR PO SCH (17:15)
[2019-09-16] MEDS: ATORVASTATIN CALCIUM 20 MG TABLET PO SCH (21:17)
[2019-09-16] MEDS: QUETIAPINE FUMARATE 100 MG TABLET PO SCH (21:17)
[2019-09-16] MEDS: NICOTINE 21 MG/24 HR PATCH.TD24 TD SCH (21:18)
[2019-09-16] MEDS: DOXEPIN HCL 25 MG CAPSULE PO SCH (22:22)
[2019-09-17] MEDS ORDERED: VANCOMYCIN HCL INJ 500 MG VIAL ONE (05:21)
[2019-09-17] MEDS: METRONIDAZOLE 500 MG/NS RTU 500 MG/100 ML RTUPB IV SCH ×4 (05:53→23:15)
[2019-09-17] MEDS: VANCOMYCIN HCL INJ 500 MG VIAL PO SCH ×4 (05:54→23:15)
[2019-09-17 06:12] LABS: HEMATOCRIT 36.4 % (36.0-47.0); HEMOGLOBIN 12.8 g/dL (12.0-15.5); MEAN CORPUSCULAR HEMOGLOBIN 32.9 pg (27.0-33.4); MEAN CORPUSCULAR HGB CONC 35.1 g/dL (32.0-36.0); MEAN CORPUSCULAR VOLUME 94 fl (80-97); PLATELET COUNT 137 10^3/uL (150-450); RED BLOOD COUNT 3.88 10^6/uL (3.72-5.28); RED CELL DISTRIBUTION WIDTH 12.4 % (11.5-14.0)
[2019-09-17 06:37] LABS: ANION GAP 6 (5-19); BLOOD UREA NITROGEN 6 mg/dL (7-20); CALCIUM 7.8 mg/dL (8.4-10.2); CARBON DIOXIDE 25 mmol/L (22-30); CHLORIDE 111 mmol/L (98-107); GLUCOSE 99 mg/dL (75-110)
[2019-09-17] MEDS: INSULIN REG, HUMAN 100 UNIT/ML 3 ML VIAL (PYX) SUBCUT SCH ×4 (07:48→22:57)
[2019-09-17] MEDS: HYDROMORPHONE HCL INJ/PF 2 MG/ML AMPULE IV PRN ×2 (08:08→18:14)
[2019-09-17] MEDS ORDERED: CALCIUM GLUCONATE 1,000 MG in DEXTROSE 5%-WATER 50 ML IV ONE (09:33)
--- NOTE | 2019-09-17 09:38 | PDOC PROGRESS REPORT ---
Subjective Progress Note for:: 09/17/19 Subjective:: 09/16/2019-no complaints this a.m. 09/17/2019-no complaints Reason For Visit: ACUTE KIDNEY INJURY, DIARRHEA, HIV Physical Exam Vital Signs: Temp Pulse Resp BP Pulse Ox 97.9 F 73 17 142/92 H 100 09/17/19 07:31 09/17/19 07:31 09/17/19 07:31 09/17/19 07:31 09/17/19 07:31 Intake & Output 09/16/19 09/17/19 09/18/19 06:59 06:59 06:59 Intake Total 5962 3670 100 Output Total 0 600 Balance 5962 3070 100 Weight 76.8 kg 76.8 kg General appearance: PRESENT: no acute distress, well-developed, well-nourished Neck exam: ABSENT: carotid bruit, JVD, lymphadenopathy, thyromegaly Respiratory exam: PRESENT: clear to auscultation constantino. ABSENT: rales, rhonchi, wheezes Cardiovascular exam: PRESENT: RRR. ABSENT: diastolic murmur, rubs, systolic murmur Pulses: PRESENT: normal dorsalis pedis pul Vascular exam: PRESENT: normal capillary refill GI/Abdominal exam: PRESENT: normal bowel sounds, soft. ABSENT: distended, guarding, mass, organolmegaly, rebound, tenderness Extremities exam: PRESENT: full ROM. ABSENT: calf tenderness, clubbing, pedal edema Neurological exam: PRESENT: alert, awake, oriented to person, oriented to place, oriented to time, oriented to situation, CN II-XII grossly intact. ABSENT: motor sensory deficit Psychiatric exam: PRESENT: appropriate affect, normal mood. ABSENT: homicidal ideation, suicidal ideation Skin exam: PRESENT: dry, intact, warm. ABSENT: cyanosis, rash Results Laboratory Results: 09/17/19 05:14 09/17/19 05:14 09/15/19 09/16/19 09/17/19 03:22 05:10 05:14 WBC 5.0 RBC 3.88 Hgb 12.8 Hct 36.4 MCV 94 MCH 32.9 MCHC 35.1 RDW 12.4 Plt Count 137 L Sodium 138.5 Potassium 3.7 Chloride 112 H Carbon Dioxide 19 L Anion Gap 8 BUN 12 Creatinine 0.72 Est GFR ( Amer) > 60 Glucose 74 L Calcium 7.3 L Stl C.difficile Tox PCR POSITIVE 09/17/19 05:14 WBC RBC Hgb Hct MCV MCH MCHC RDW Plt Count Sodium 141.8 Potassium 4.0 Chloride 111 H Carbon Dioxide 25 Anion Gap 6 BUN 6 L Creatinine 0.58 Est GFR ( Amer) > 60 Glucose 99 Calcium 7.8 L Stl C.difficile Tox PCR 09/15/19 13:15 Troponin I < 0.012 Impressions: Abdomen/Pelvis CT 09/15/19 13:29 IMPRESSION: NO SIGNIFICANT OR ACUTE ABDOMINAL PROCESS. Assessment and Plan - Diagnosis (1) WAI (acute kidney injury) Is this a current diagnosis for this admission?: Yes Plan: 09/15/2019-admit to IMCU. Patient did receive 3 L normal saline bolus in the ER. I will continue normal saline at 175 mL/h. Repeat BMP in a.m. Initial creatinine and BUN 1.9 and 29. 09/16/2019-awaiting a.m. labs. I have decreased IV fluids 100 mL/h. I will make further changes based on diagnostic findings. 09/17/2019-renal function back to normal. DC IV fluids. Continue oral intake. (2) Dehydration Is this a current diagnosis for this admission?: Yes Plan: 09/15/2019-see 1 09/16/2019-see #1 09/17/2019-resolved stable. (3) Hypotension Qualifiers: Hypotension type: hypotension due to hypovolemia Qualified Code(s): I95.89 - Other hypotension; E86.1 - Hypovolemia Is this a current diagnosis for this admission?: Yes Plan: 09/15/2019-I believe this secondary to dehydration. Patient has been adequately hydrated blood pressure seem to be titrating up. We will add low-dose vasopressors as needed. 09/16/2019-patient remains in the 80s 90 systolic range but asymptomatic. We will continue hydration and follow 09/17/2019-resolved stable (4) Nausea vomiting and diarrhea Is this a current diagnosis for this admission?: Yes Plan: 09/15/2019-C. difficile pending. Zofran for nausea and vomiting. Place patient on Cipro 400 mg IV twice daily and Flagyl 500 mg every 6 hours in case there is some component of colitis causing this diarrhea. 09/16/2019-C. difficile pending. Continue current therapy including Flagyl. Ceasar jewell changes based on findings 09/17/2019-improved at this time. Stable (5) HIV positive Is this a current diagnosis for this admission?: Yes Plan: 09/15/2019-continue all home HIV medications once medication reconciliation has been completed 09/16/2019-all HIV medications have been resumed 09/17/2019-continue HIV medications (6) C. difficile colitis Is this a current diagnosis for this admission?: Yes Plan: 09/17/2019-vancomycin 250 mg p.o. every 6 hours and Flagyl 500 g IV every 6. (7) UTI (urinary tract infection) Is this a current diagnosis for this admission?: Yes Plan: 09/17/2019-Cipro 400 mg IV twice daily - Time Time Spent with patient: 15-24 minutes - Inpatient Certification Based on my medical assessment, after consideration of the patient's comorbidities, presenting symptoms, or acuity I expect that the services needed warrant INPATIENT care.: Yes I certify that my determination is in accordance with my understanding of Medicare's requirements for reasonable and necessary INPATIENT services [42 CFR 412.3e].: Yes Medical Necessity: Significant Comorbidiites Make Outpatient Treatment Too Risky, Need Close Monitoring Due to Risk of Patient Decompensation, Need for IV Antibiotics
[2019-09-17] MEDS: CARVEDILOL 3.125 MG TABLET PO SCH ×2 (09:57→22:57)
[2019-09-17] MEDS: ESTROGENS,CONJUGATED 0.625 MG TABLET PO SCH (09:57)
[2019-09-17] MEDS: PANTOPRAZOLE SODIUM 40 MG VIAL IV SCH ×2 (09:57→22:57)
[2019-09-17] MEDS: DULOXETINE HCL 30 MG CAPSULE.DR PO SCH ×2 (09:57→18:00)
[2019-09-17] MEDS ORDERED: CALCIUM GLUCONATE 1000 MG/10 ML INJ IV ONE (10:00)
[2019-09-17] MEDS ORDERED: ABACAVIR PO SCH (10:00)
[2019-09-17] MEDS ORDERED: RAMIPRIL 10 MG CAPSULE PO SCH (10:00)
[2019-09-17] MEDS ORDERED: DOLUTEGRAVIR PO SCH (10:00)
[2019-09-17] MEDS ORDERED: LAMIVUDI PO SCH (10:00)
[2019-09-17] MEDS ORDERED: [UNRECOGNIZED DRUG - OTHER] PO SCH (10:00)
[2019-09-17] MEDS: ATORVASTATIN CALCIUM 20 MG TABLET PO SCH (22:56)
[2019-09-17] MEDS: NICOTINE 21 MG/24 HR PATCH.TD24 TD SCH (22:56)
[2019-09-17] MEDS: QUETIAPINE FUMARATE 100 MG TABLET PO SCH (22:58)
[2019-09-17] MEDS: DOXEPIN HCL 25 MG CAPSULE PO SCH (22:58)
[2019-09-18 05:29] LABS: HEMATOCRIT 37.4 % (36.0-47.0); HEMOGLOBIN 13.1 g/dL (12.0-15.5); MEAN CORPUSCULAR HEMOGLOBIN 32.4 pg (27.0-33.4); MEAN CORPUSCULAR VOLUME 93 fl (80-97); PLATELET COUNT 154 10^3/uL (150-450); RED BLOOD COUNT 4.04 10^6/uL (3.72-5.28); RED CELL DISTRIBUTION WIDTH 12.2 % (11.5-14.0); WHITE BLOOD COUNT 6.3 10^3/uL (4.0-10.5)
[2019-09-18 05:54] LABS: ANION GAP 9 (5-19); BLOOD UREA NITROGEN 8 mg/dL (7-20); CALCIUM 8.5 mg/dL (8.4-10.2); CARBON DIOXIDE 25 mmol/L (22-30); CHLORIDE 105 mmol/L (98-107); GLUCOSE 106 mg/dL (75-110); POTASSIUM 3.9 mmol/L (3.6-5.0)
[2019-09-18] MEDS ORDERED: VANCOMYCIN HCL INJ 500 MG VIAL ONE (05:59)
[2019-09-18] MEDS: METRONIDAZOLE 500 MG/NS RTU 500 MG/100 ML RTUPB IV SCH ×3 (06:09→17:34)
[2019-09-18] MEDS: VANCOMYCIN HCL INJ 500 MG VIAL PO SCH ×3 (06:13→17:33)
[2019-09-18] MEDS: INSULIN REG, HUMAN 100 UNIT/ML 3 ML VIAL (PYX) SUBCUT SCH ×4 (07:24→21:15)
[2019-09-18] MEDS: CARVEDILOL 3.125 MG TABLET PO SCH ×2 (09:09→22:13)
[2019-09-18] MEDS: PANTOPRAZOLE SODIUM 40 MG VIAL IV SCH ×2 (09:09→22:12)
[2019-09-18] MEDS: DULOXETINE HCL 30 MG CAPSULE.DR PO SCH ×2 (09:09→17:33)
[2019-09-18] MEDS: ESTROGENS,CONJUGATED 0.625 MG TABLET PO SCH (09:10)
[2019-09-18] MEDS: HYDROMORPHONE HCL INJ/PF 2 MG/ML AMPULE IV PRN (15:45)
--- NOTE | 2019-09-18 18:03 | PDOC PROGRESS REPORT ---
Subjective Progress Note for:: 09/18/19 Subjective:: This is a 49 year old female with HIV, DM 2 and CAD who presented with diarrhea and vomiting. She is found to have acute renal failure. She was started on IV fluids. Stool studies also came back positive for C. difficile. This morning, she had one episode of watery, nonbloody stools. She says that the frequency has decreased compared to the past few days. She does report that she was recently placed on antibiotics for a throat and ear infection. She denies other acute complaints. Denies chest pain or shortness of breath. She denies dysuria, hematuria or urinary frequency. Reason For Visit: ACUTE KIDNEY INJURY, DIARRHEA, HIV Physical Exam Vital Signs: Temp Pulse Resp BP Pulse Ox 98.1 F 65 18 150/94 H 100 09/18/19 15:54 09/18/19 15:54 09/18/19 15:54 09/18/19 15:54 09/18/19 15:54 Intake & Output 09/17/19 09/18/19 09/19/19 06:59 06:59 06:59 Intake Total 3670 2480 200 Output Total 600 0 Balance 3070 2480 200 Weight 169 lb 5.04 oz 167 lb 8.821 oz General appearance: PRESENT: no acute distress, well-developed, well-nourished Head exam: PRESENT: atraumatic, normocephalic Eye exam: PRESENT: conjunctiva pink, EOMI, PERRLA. ABSENT: scleral icterus Ear exam: PRESENT: normal external ear exam Mouth exam: PRESENT: moist, tongue midline Neck exam: ABSENT: carotid bruit, JVD, lymphadenopathy, thyromegaly Respiratory exam: PRESENT: clear to auscultation constantino. ABSENT: rales, rhonchi, wheezes Cardiovascular exam: PRESENT: RRR. ABSENT: diastolic murmur, rubs, systolic murmur Pulses: PRESENT: normal dorsalis pedis pul GI/Abdominal exam: PRESENT: normal bowel sounds, soft. ABSENT: distended, guarding, mass, organolmegaly, rebound, tenderness Rectal exam: PRESENT: deferred Extremities exam: PRESENT: full ROM. ABSENT: calf tenderness, clubbing, pedal edema Neurological exam: PRESENT: alert, awake, oriented to person, oriented to place, oriented to time, oriented to situation, CN II-XII grossly intact. ABSENT: motor sensory deficit Results Laboratory Results: 09/18/19 05:06 09/18/19 05:06 09/18/19 09/18/19 05:06 05:06 WBC 6.3 RBC 4.04 Hgb 13.1 Hct 37.4 MCV 93 MCH 32.4 MCHC 35.0 RDW 12.2 Plt Count 154 Sodium 139.2 Potassium 3.9 Chloride 105 Carbon Dioxide 25 Anion Gap 9 BUN 8 Creatinine 0.54 Est GFR ( Amer) > 60 Glucose 106 Calcium 8.5 09/15/19 03:22 Stool - Stool - Final 09/15/19 03:22 Stool - Stool Stool Culture - Final NO SALMONELLA, SHIGELLA, CAMPYLOBACTER, OR E.COLI 0157 RECOVERED. NEGATIVE FOR SHIGA TOXINS 1&2. 09/15/19 13:15 Troponin I < 0.012 Impressions: Abdomen/Pelvis CT 09/15/19 13:29 IMPRESSION: NO SIGNIFICANT OR ACUTE ABDOMINAL PROCESS. Assessment and Plan - Diagnosis (1) WAI (acute kidney injury) Is this a current diagnosis for this admission?: Yes Plan: Prerenal from volume depletion. Resolved with IV fluids. (2) C. difficile colitis Is this a current diagnosis for this admission?: Yes Plan: Slightly improved. She had watery stool this morning but frequency has decreas ed. Continue vancomycin and Flagyl. (3) Dehydration Is this a current diagnosis for this admission?: Yes Plan: Improved. (4) HIV positive Is this a current diagnosis for this admission?: Yes Plan: Continue HAART. - Time Time Spent with patient: 25-34 minutes
[2019-09-18] MEDS: QUETIAPINE FUMARATE 100 MG TABLET PO SCH (22:12)
[2019-09-18] MEDS: ATORVASTATIN CALCIUM 20 MG TABLET PO SCH (22:12)
[2019-09-18] MEDS: NICOTINE 21 MG/24 HR PATCH.TD24 TD SCH (22:13)
[2019-09-18] MEDS: DOXEPIN HCL 25 MG CAPSULE PO SCH (22:13)
[2019-09-19] MEDS: METRONIDAZOLE 500 MG/NS RTU 500 MG/100 ML RTUPB IV SCH ×2 (00:38→06:34)
[2019-09-19] MEDS: VANCOMYCIN HCL INJ 500 MG VIAL PO SCH ×2 (00:39→06:34)
[2019-09-19] MEDS: HYDROMORPHONE HCL INJ/PF 2 MG/ML AMPULE IV PRN (02:16)
[2019-09-19] MEDS: INSULIN REG, HUMAN 100 UNIT/ML 3 ML VIAL (PYX) SUBCUT SCH ×2 (07:30→11:35)
[2019-09-19] MEDS: ESTROGENS,CONJUGATED 0.625 MG TABLET PO SCH (09:28)
[2019-09-19] MEDS: CARVEDILOL 3.125 MG TABLET PO SCH (09:28)
[2019-09-19] MEDS: DULOXETINE HCL 30 MG CAPSULE.DR PO SCH (09:28)
[2019-09-19] MEDS: PANTOPRAZOLE SODIUM 40 MG VIAL IV SCH (09:29)
[2019-09-19 13:26] VITALS: BP 147/94
--- NOTE | 2019-09-19 18:19 | PDOC DISCHARGE SUMMARY ---
Impression - Admit/DC Date/PCP Admission Date/Primary Care Provider: 09/15/19 16:47 LETTY BIRMINGHAM NP Discharge Date: 09/19/19 - Discharge Diagnosis (1) WAI (acute kidney injury) Is this a current diagnosis for this admission?: Yes (2) C. difficile colitis Is this a current diagnosis for this admission?: Yes (3) Dehydration Is this a current diagnosis for this admission?: Yes (4) HIV positive Is this a current diagnosis for this admission?: Yes - Additional Information Resuscitation Status: Full Code Discharge Diet: As Tolerated Discharge Activity: Activity As Tolerated, Balance Activity w/Rest, Energy Conservation Referrals: LTETY BIRMINGHAM NP [Primary Care Provider] - 09/28/19 2:30 pm Prescriptions: Vancomycin HCl [Vancocin HCl] 125 mg PO Q6H 8 Days #32 capsule Home Medications: Abacavir/Dolutegravir/Lamivudi [Triumeq 600-50-300 mg Tablet] 1 each PO DAILY 09/16/19 Carvedilol [Coreg 3.125 mg Tablet] 3.125 mg PO BID 09/16/19 Doxepin HCl 150 mg PO QHS 09/16/19 Duloxetine HCl [Cymbalta] 60 mg PO BID 09/16/19 Estrogens,Conjugated [Premarin 0.625 mg Tablet] 0.625 mg PO DAILY 09/16/19 Hydrochlorothiazide [Hydrodiuril 25 mg Tablet] 25 mg PO DAILY 09/16/19 Insulin Glargine,Hum.rec.anlog [Lantus Insulin 100 Unit/mL Insulin Pen] 44 unit SUBCUT QHS 09/16/19 Morphine Sulfate [Morphabond ER] 15 mg PO Q12 09/16/19 Quetiapine Fumarate [Seroquel] 50 mg PO QHS 09/16/19 Ramipril [Altace 10 mg Capsule] 1 cap PO DAILY 09/16/19 Rosuvastatin Calcium 10 mg PO DAILY 09/16/19 Vancomycin HCl [Vancocin HCl] 125 mg PO Q6H 8 Days #32 capsule 09/19/19 History of Present Illiness History of Present Illness: Admitting hospitalist's H&P: BELGICA YADAV is a 49 year old female HIV-positive who presents with diarrhea. Patient states 2 episodes of vomiting and 6 episodes of nonbloody diarrhea over the last 2 days. Patient states her last CD4 count was 900 viral load was undetectable. Patient states she was placed on antibiotics again in August for dental infection however that has had no other complications. Patient is on HAART for her HIV and has a history of hyperlipidemia as well. She does have a history of diabetes and CAD as well. She has had no treatment prior to arrival all oral intakes been aggravating factor. Hospital Course Hospital Course: This is a 49 year old female with HIV, DM 2 and CAD who presented with diarrhea and vomiting. She was found to have acute renal failure. She was started on IV fluids. Stool studies also came back positive for C. difficile. Started on p.o. vancomycin and IV Flagyl. She did report that she was recently placed on antibiotics for a throat and ear infection. She denies other acute complaints. Denies chest pain or shortness of breath. She denies dysuria, hematuria or urinary frequency. Her acute kidney injury resolved with IV fluids. Her diarrhea also significantly improved and a day prior to discharge she only had one episode of slightly more formed stools. She did not have recurrence of diarrhea. She returned to her baseline. She will complete a total 10-day therapy of oral vancomycin. Physical Exam Vital Signs: Temp Pulse Resp BP Pulse Ox 97.7 F 70 17 168/62 H 100 09/19/19 12:09 09/19/19 12:09 09/19/19 12:09 09/19/19 12:09 09/19/19 12:09 Intake & Output 09/18/19 09/19/19 09/20/19 06:59 06:59 06:59 Intake Total 2480 1625 100 Output Total 0 Balance 2480 1625 100 Weight 167 lb 8.821 oz 168 lb 10.458 oz General appearance: PRESENT: no acute distress, well-developed, well-nourished Head exam: PRESENT: atraumatic, normocephalic Eye exam: PRESENT: conjunctiva pink, EOMI, PERRLA. ABSENT: scleral icterus Ear exam: PRESENT: normal external ear exam Mouth exam: PRESENT: moist, tongue midline Neck exam: ABSENT: carotid bruit, JVD, lymphadenopathy, thyromegaly Respiratory exam: PRESENT: clear to auscultation constantino. ABSENT: rales, rhonchi, wheezes Cardiovascular exam: PRESENT: RRR. ABSENT: diastolic murmur, rubs, systolic murmur Pulses: PRESENT: normal dorsalis pedis pul GI/Abdominal exam: PRESENT: normal bowel sounds, soft. ABSENT: distended, guarding, mass, organolmegaly, rebound, tenderness Rectal exam: PRESENT: deferred Extremities exam: PRESENT: full ROM. ABSENT: calf tenderness, clubbing, pedal edema Neurological exam: PRESENT: alert, awake, oriented to person, oriented to place, oriented to time, oriented to situation, CN II-XII grossly intact. ABSENT: motor sensory deficit Results Laboratory Results: WBC 6.3 10^3/uL (4.0-10.5) 09/18/19 05:06 RBC 4.04 10^6/uL (3.72-5.28) 09/18/19 05:06 Hgb 13.1 g/dL (12.0-15.5) 09/18/19 05:06 Hct 37.4 % (36.0-47.0) 09/18/19 05:06 MCV 93 fl (80-97) 09/18/19 05:06 MCH 32.4 pg (27.0-33.4) 09/18/19 05:06 MCHC 35.0 g/dL (32.0-36.0) 09/18/19 05:06 RDW 12.2 % (11.5-14.0) 09/18/19 05:06 Plt Count 154 10^3/uL (150-450) 09/18/19 05:06 Lymph % (Auto) 18.6 % (13-45) 09/15/19 13:15 [place] % (Auto) 9.0 % (3-13) 09/15/19 13:15 Eos % (Auto) 0.3 % (0-6) 09/15/19 13:15 Baso % (Auto) 0.3 % (0-2) 09/15/19 13:15 Absolute Neuts (auto) 5.5 10^3/uL (1.7-8.2) 09/15/19 13:15 Absolute Lymphs (auto) 1.4 10^3/uL (0.5-4.7) 09/15/19 13:15 Absolute Monos (auto) 0.7 10^3/uL (0.1-1.4) 09/15/19 13:15 Absolute Eos (auto) 0.0 10^3/uL (0.0-0.6) 09/15/19 13:15 Absolute Basos (auto) 0.0 10^3/uL (0.0-0.2) 09/15/19 13:15 Seg Neutrophils % 71.8 % (42-78) 09/15/19 13:15 Sodium 139.2 mmol/L (137-145) 09/18/19 05:06 Potassium 3.9 mmol/L (3.6-5.0) 09/18/19 05:06 Chloride 105 mmol/L (98-107) 09/18/19 05:06 Carbon Dioxide 25 mmol/L (22-30) 09/18/19 05:06 Anion Gap 9 (5-19) 09/18/19 05:06 BUN 8 mg/dL (7-20) 09/18/19 05:06 Creatinine 0.54 mg/dL (0.52-1.25) 09/18/19 05:06 Est GFR ( Amer) > 60 (>60) 09/18/19 05:06 Est GFR (MDRD) Non-Af > 60 (>60) 09/18/19 05:06 Glucose 106 mg/dL (75-110) 09/18/19 05:06 POC Glucose 102 mg/dL (70-110) 09/19/19 11:27 Hemoglobin A1c % 6.4 % (4.7-6.0) H 09/16/19 05:10 Lactic Acid (Sepsis) 0.9 mmol/L (0.7-2.1) 09/15/19 13:15 Calcium 8.5 mg/dL (8.4-10.2) 09/18/19 05:06 Phosphorus 3.5 mg/dL (2.5-4.5) 09/16/19 05:10 Magnesium 1.6 mg/dL (1.6-2.3) 09/16/19 05:10 Total Bilirubin 0.4 mg/dL (0.2-1.3) 09/15/19 13:15 Direct Bilirubin 0.2 mg/dL (0.0-0.4) 09/15/19 13:15 Neonat Total Bilirubin Not Reportable 09/15/19 13:15 Neonat Direct Bilirubin Not Reportable 09/15/19 13:15 Neonat Indirect Bili Not Reportable 09/15/19 13:15 AST 134 U/L (14-36) H 09/15/19 13:15 ALT 130 U/L (<35) 09/15/19 13:15 Alkaline Phosphatase 69 U/L (38-126) 09/15/19 13:15 Troponin I < 0.012 ng/mL 09/15/19 13:15 Total Protein 7.1 g/dL (6.3-8.2) 09/15/19 13:15 Albumin 4.2 g/dL (3.5-5.0) 09/15/19 13:15 Lipase 58.2 U/L (23-300) 09/15/19 13:15 Urine Color ANJANA 09/15/19 14:12 Urine Appearance CLOUDY 09/15/19 14:12 Urine pH 5.0 (5.0-9.0) 09/15/19 14:12 Ur Specific [place] 1.028 09/15/19 14:12 Urine Protein 100 mg/dL (NEGATIVE) H 09/15/19 14:12 Urine Glucose (UA) NEGATIVE mg/dL (NEGATIVE) 09/15/19 14:12 Urine Ketones TRACE mg/dL (NEGATIVE) H 09/15/19 14:12 Urine Blood NEGATIVE (NEGATIVE) 09/15/19 14:12 Urine Nitrite NEGATIVE (NEGATIVE) 09/15/19 14:12 Urine Bilirubin SMALL (NEGATIVE) H 09/15/19 14:12 Urine Urobilinogen 2.0 mg/dL (<2.0) H 09/15/19 14:12 Ur Leukocyte Esterase TRACE (NEGATIVE) H 09/15/19 14:12 Urine WBC (Auto) 17 /HPF 09/15/19 14:12 Urine RBC (Auto) 2 /HPF 09/15/19 14:12 Urine Bacteria (Auto) TRACE /HPF 09/15/19 14:12 Squamous Epi Cells Auto 2 /HPF 09/15/19 14:12 U Non-Squamous Epis Auto 2 /HPF 09/15/19 14:12 Urine Mucus (Auto) RARE /LPF 09/15/19 14:12 Urine Ascorbic Acid NEGATIVE (NEGATIVE) 09/15/19 14:12 Stool for White Cells NO WBCs SEEN 09/15/19 03:22 Stl C. Difficile GDH Ag NEGATIVE (NEGATIVE) 09/15/19 03:22 Stl C.difficile Tox A&B POSITIVE (NEGATIVE) 09/15/19 03:22 Stl C.difficile Tox PCR POSITIVE (NEGATIVE) 09/15/19 03:22 09/15/19 13:15 Troponin I < 0.012 Impressions: Abdomen/Pelvis CT 09/15/19 13:29 IMPRESSION: NO SIGNIFICANT OR ACUTE ABDOMINAL PROCESS. Stroke Is this a Stroke Patient?: No Acute Heart Failure - Is this a Heart Failure Patient?: No
== END 2019-09-19 14:40 | disposition home or self-care (01) | DRG 372 ==
LOC: ER 12:52 → EH 16:47 → 3W 17:52
PROVIDERS: ADMIT Internal Medicine; ATTEND Internal Medicine
DX: A04.72 Enterocolitis due to Clostridium difficile, not specified as recurrent (principal); N17.9 Acute kidney failure, unspecified; N39.0 Urinary tract infection, site not specified; E86.0 Dehydration; Z21 Asymptomatic human immunodeficiency virus [HIV] infection status; E78.5 Hyperlipidemia, unspecified; E11.9 Type 2 diabetes mellitus without complications; I25.10 Atherosclerotic heart disease of native coronary artery without angina pectoris; J44.9 Chronic obstructive pulmonary disease, unspecified; I95.89 Other hypotension; F32.9 Major depressive disorder, single episode, unspecified; E86.1 Hypovolemia; F17.210 Nicotine dependence, cigarettes, uncomplicated; I25.2 Old myocardial infarction; Z79.899 Other long term (current) drug therapy; Z88.6 Allergy status to analgesic agent; Z91.041 Radiographic dye allergy status; Z91.012 Allergy to eggs; Z88.0 Allergy status to penicillin; Z91.018 Allergy to other foods
CPT/HCPCS: 36415; 51701; 74176; 80048; 80053; 81001; 82962; 83036; 83605; 83690; 83735; 84100; 84484; 85025; 85027; 87040; 87045; 87205; 87324; 87449; 87493; 89055; 93005; 93010; 96361; 96365; 96366; 96368; 96375; 99291; C9113; J0610; J0713; J0744; J1170; J1815; J2405; J3370; J3490; J7030

== ENCOUNTER 2019-11-21 09:32 | Emergency (ER) | payer MEDICARE, MEDICAID ==
--- NOTE | 2019-11-21 11:47 | ER Document Report ---
ED Allergic Reaction - General Chief Complaint: Allergic Reaction Stated Complaint: POSSIBLE ALLERGIC REACTION Time Seen by Provider: 11/21/19 09:49 Primary Care Provider: HENRIQUE JEAN BAPTISTE MD [Primary Care Provider] - Follow up as needed Mode of Arrival: Ambulatory Information source: Patient TRAVEL OUTSIDE OF THE [place] IN LAST 30 DAYS: No - HPI Notes: Patient is presenting with swelling of her tongue and some trouble swallowing. She states she has had this happen multiple times in the last 1 to 2 years. She states she does have an EpiPen at home. She did use her EpiPen this morning. Also received some epinephrine by paramedics as well as some Solu-Medrol and Benadryl. She states she has not felt short of breath. No lightheadedness or dizziness. She states she has not seen an director of maternity services concerning this problem. She is unsure what may be triggering her allergy. She denies being on any type of blood pressure medication. Patient symptoms are constant. They are mild to moderate. Nothing makes it better or worse. There is no radiation of symptoms. - Related Data Allergies/Adverse Reactions: aspirin Allergy (Verified 11/21/19 09:49) Anaphylaxis chicken derived Allergy (Verified 11/21/19 09:49) Anaphylaxis egg Allergy (Verified 11/21/19 09:49) Anaphylaxis Egg Derived Allergy (Verified 11/21/19 09:49) Anaphylaxis Penicillins Allergy (Verified 11/21/19 09:49) Anaphylaxis turkey Allergy (Verified 11/21/19 09:49) Anaphylaxis iv dye Allergy (Uncoded 11/21/19 09:49) Anaphylaxis Home Medications: epinephrine Past Medical History - General Information source: Patient - Social History Smoking Status: Former Smoker Frequency of alcohol use: None Drug Abuse: None Family History: DM, Hypertension Patient has suicidal ideation: No Patient has homicidal ideation: No - Past Medical History Cardiac Medical History: Reports: Hx Heart Attack, Hx Hypercholesterolemia Pulmonary Medical History: Reports: Hx COPD Endocrine Medical History: Reports: Hx Diabetes Mellitus Type 2 Renal/ Medical History: Denies: Hx Peritoneal Dialysis Psychiatric Medical History: Reports: Hx Depression Past Surgical History: Reports: Hx Cardiac Catheterization, Hx Cardiac Surgery - stent Review of Systems - Review of Systems Constitutional: denies: Chills, Fever Cardiovascular: denies: Chest pain, Palpitations Respiratory: denies: Cough, Short of breath -: Yes All other systems reviewed and negative Physical Exam - Vital signs Vitals: Temp 98.8 F 11/21/19 09:36 Interpretation: Normal - General General appearance: Appears well, Alert - HEENT Head: Normocephalic, Atraumatic Eyes: Normal Pupils: PERRL Mouth/Lips: Angioedema, Other - Patient has some mild angioedema of the right side of the tongue. Left side of the tongue appears unremarkable. The soft palate is unremarkable. The posterior pharynx and uvula have no evidence of angioedema. - Respiratory Respiratory status: No respiratory distress Chest status: Nontender Breath sounds: Normal Chest palpation: Normal - Cardiovascular Rhythm: Regular Heart sounds: Normal auscultation Murmur: No - Abdominal Inspection: Normal Distension: No distension Bowel sounds: Normal Tenderness: Nontender Organomegaly: No organomegaly - Back Back: Normal, Nontender - Extremities General upper extremity: Normal inspection, Nontender, Normal color, Normal ROM, Normal temperature General lower extremity: Normal inspection, Nontender, Normal color, Normal ROM, Normal temperature, Normal weight bearing. No: Watson's sign - Neurological Neuro grossly intact: Yes Cognition: Normal Orientation: AAOx4 Clifford Coma Scale Eye Opening: Spontaneous Clifford Coma Scale Verbal: Oriented [place] Coma Scale Motor: Obeys Commands Clifford Coma Scale Total: 15 Speech: Normal Motor strength normal: LUE, RUE, LLE, RLE Sensory: Normal - Psychological Associated symptoms: Normal affect, Normal mood - Skin Skin Temperature: Warm Skin Moisture: Dry Skin Color: Normal Course - Re-evaluation Re-evalutation: 11/21/19 11:46 Patient was monitored here for approximately 2 hours. She has had a significant decrease of her symptoms. There is no longer any significant angioedema present. Patient's vitals are stable. I will discharge patient home with a prescription for an EpiPen and referral to an director of maternity services. - Vital Signs Vital signs: Temp Pulse Resp BP Pulse Ox 98.8 F 25 H 110/88 H 96 11/21/19 09:36 11/21/19 11:01 11/21/19 11:00 11/21/19 11:01 Discharge - Discharge Clinical Impression: Angioedema Qualifiers: Encounter type: initial encounter Qualified Code(s): T78.3XXA - Angioneurotic edema, initial encounter Condition: Stable Disposition: HOME, SELF-CARE Instructions: Angioedema ([facility]) Additional Instructions: Please consult an director of maternity services as soon as possible Prescriptions: Epinephrine [Epipen 2-David] 0.3 mg IJ ONCE PRN 1 Days #1 auto.injct PRN Reason: Forms: Return to Work Referrals: HENRIQUE JEAN BAPTISTE MD [Primary Care Provider] - Follow up as needed LUIZA GRIGGS MD [ACTIVE STAFF] - Follow up in 3-5 days
[2019-11-21 12:00] VITALS: BP 101/77
== END 2019-11-21 12:00 | disposition home or self-care (01) ==
LOC: ER 09:32
DX: T78.3XXA Angioneurotic edema, initial encounter (principal); T46.4X5A Adverse effect of angiotensin-converting-enzyme inhibitors, initial encounter; E11.9 Type 2 diabetes mellitus without complications; Z87.892 Personal history of anaphylaxis; Z88.8 Allergy status to other drugs, medicaments and biological substances; Z91.018 Allergy to other foods; Z91.012 Allergy to eggs; Z88.0 Allergy status to penicillin; Z91.041 Radiographic dye allergy status; Z87.891 Personal history of nicotine dependence
CPT/HCPCS: 99284

== ENCOUNTER 2020-01-02 19:14 | Emergency (ER) | payer MEDICAID, MEDICARE ==
[2020-01-02 21:09] VITALS: BP 112/73
--- NOTE | 2020-01-02 21:51 | ER Document Report ---
ED General - General Chief Complaint: Lip Swelling Stated Complaint: ALLERGIC REACTION Time Seen by Provider: 01/02/20 20:37 Primary Care Provider: HENRIQUE JEAN BAPTISTE MD [Primary Care Provider] - Follow up as needed TRAVEL OUTSIDE OF THE [place] IN LAST 30 DAYS: No - HPI Notes: Chief complaint: Facial swelling 49-year-old female with long history of recurrent allergic reactions with multiple documented food allergies presenting now after experiencing facial swelling which developed spontaneously with no clearly identified specific precipitating factor. She took an EpiPen and some Benadryl at home. She was transported here by EMS and in route they gave IV Solu-Medrol and also gave her an albuterol nebulizer treatment because of some wheezing. By the time of arrival here her symptoms had essentially resolved. Patient is not currently on an KAYLIE inhibitor. She does have a history of HIV and is on multiple medications however. None of her medications have recently been changed. - Related Data Allergies/Adverse Reactions: aspirin Allergy (Verified 11/21/19 09:49) Anaphylaxis chicken derived Allergy (Verified 11/21/19 09:49) Anaphylaxis egg Allergy (Verified 11/21/19 09:49) Anaphylaxis Egg Derived Allergy (Verified 11/21/19 09:49) Anaphylaxis Penicillins Allergy (Verified 11/21/19 09:49) Anaphylaxis turkey Allergy (Verified 11/21/19 09:49) Anaphylaxis iv dye Allergy (Uncoded 11/21/19 09:49) Anaphylaxis Past Medical History - General Information source: Patient, Emergency Med Personnel, [facility] Records - Social History Smoking Status: Current Every Day Smoker Family History: DM, Hypertension Patient has suicidal ideation: No Patient has homicidal ideation: No - Past Medical History Cardiac Medical History: Reports: Hx Heart Attack, Hx Hypercholesterolemia Pulmonary Medical History: Reports: Hx COPD Endocrine Medical History: Reports: Hx Diabetes Mellitus Type 2 Renal/ Medical History: Denies: Hx Peritoneal Dialysis Psychiatric Medical History: Reports: Hx Depression Past Surgical History: Reports: Hx Cardiac Catheterization, Hx Cardiac Surgery - stent Review of Systems - Review of Systems Notes: Constitutional: Negative for fever. HENT: As per HPI. Eyes: Negative for visual changes. Cardiovascular: Negative for chest pain. Respiratory: Negative for shortness of breath. Gastrointestinal: Negative for abdominal pain, vomiting or diarrhea. Genitourinary: Negative for dysuria. Musculoskeletal: Negative for back pain. Skin: Negative for rash. Neurological: Negative for headaches, weakness or numbness. 10 point ROS negative except as marked above and in HPI. Physical Exam - Vital signs Vitals: Temp Pulse Resp BP Pulse Ox 98.1 F 101 H 22 H 114/80 98 01/02/20 19:32 01/02/20 19:32 01/02/20 19:32 01/02/20 19:32 01/02/20 19:32 - Notes Notes: GENERAL: Well-developed well-nourished appearing in no acute distress. SKIN: Good turgor no rashes. HEAD: Normocephalic atraumatic. EYES: PERRLA. EOMI. Conjunctivae and sclerae clear. EARS: CANALS AND TMS CLEAR. NOSE: CLEAR. MOUTH: Moist mucosa. Good dentition. No stridor or edema. No drooling. NECK: Supple. No masses or thyromegaly. No adenopathy. Carotids 2+ without bruits. No JVD. BACK: Symmetrical without tenderness. CHEST: Respirations unlabored. Breath sounds clear and symmetrical. HEART: Regular rhythm. No murmur gallop or rub. ABDOMEN: Soft nontender without masses, organomegaly or rebound. Bowel sounds normally active. No bruits. GENITALIA: Deferred. EXTREMITIES: No edema. No calf tenderness. Cap refill less than 1.5 seconds. Dorsalis pedis and posterior tibial pulses 3+ and symmetrical. NEUROLOGICAL: GCS 15. Alert and oriented x3. Normal gait. Fluent speech. Cranial nerves II through XII intact. Sensorimotor and cerebellar normal. Normal tone. PSYCHIATRIC: Appropriate affect. Course - Re-evaluation Re-evalutation: 01/02/20 21:48 Patient appears to have had significant angioedema prior to arrival here but this was essentially resolved with field interventions per EMS. I observed her for an extended period of time here with no recurrence of symptoms. She has an EpiPen at home. She is instructed to continue taking Benadryl. I will go to give her prednisone for 3 days and have her follow-up with her primary care doctor. I strongly encouraged her to seek referral to an continuity manager. - Vital Signs Vital signs: Temp Pulse Resp BP Pulse Ox 98.0 F 101 H 16 112/73 99 01/02/20 21:04 01/02/20 19:32 01/02/20 21:04 01/02/20 21:04 01/02/20 21:04 Discharge - Discharge Clinical Impression: Angioedema Qualifiers: Encounter type: initial encounter Qualified Code(s): T78.3XXA - Angioneurotic edema, initial encounter Condition: Stable Disposition: HOME, SELF-CARE Additional Instructions: Angioedema Angioedema is an allergic swelling of the soft tissues of the body. The lips and mouth are most commonly involved. Medicication allergy is a common cause, especially KAYLIE inhibitor medicine (used for blood pressure control). Food, even something you've eaten frequently, can cause angioedema. In many cases it's not obvious what caused the swelling. Acute treatment may include adrenalin and antihistamines. If the cause is known, you must avoid this food or medicine in the future. If angioedema affects your air passages, it can be life-threatening. Return at once if you develop shortness of breath, faintness, severe pain, inability to swallow, or if swelling worsens.swelling worsens. Take 50 mg of Benadryl 3 times a day for the next 3 days. Take prescribed steroid medication as directed. Use your EpiPen if you have any recurrence of significant symptoms and return here as needed. Otherwise follow-up with your primary care physician within the next 3 to 5 days and discuss need for referral to an continuity manager for further evaluation. Prescriptions: Prednisone [Deltasone 20 mg Tablet] 2 tab PO DAILY 5 Days tablet Referrals: HENRIQUE JEAN BAPTISTE MD [Primary Care Provider] - Follow up as needed
== END 2020-01-02 21:58 | disposition home or self-care (01) ==
LOC: ER 19:14
DX: T78.3XXA Angioneurotic edema, initial encounter (principal); R22.0 Localized swelling, mass and lump, head; B20 Human immunodeficiency virus [HIV] disease; Z88.8 Allergy status to other drugs, medicaments and biological substances; Z88.0 Allergy status to penicillin; F17.200 Nicotine dependence, unspecified, uncomplicated; I25.2 Old myocardial infarction; E11.9 Type 2 diabetes mellitus without complications; J44.9 Chronic obstructive pulmonary disease, unspecified; X58.XXXA Exposure to other specified factors, initial encounter
CPT/HCPCS: 99285

== ENCOUNTER 2020-01-10 10:02 | Emergency (ER) | payer MEDICARE ==
--- NOTE | 2020-01-10 10:15 | ER Document Report ---
HPI - HPI Time Seen by Provider: 01/10/20 10:06 Notes: 49-year-old female with a history of chronic back pain, type 2 diabetes, NM and degenerative joint disease presents via EMS for slurred speech and drowsiness after taking morphine 15mg tablet this morning. She states she hasn't taken any in the last week. Patient takes 15 mg of morphine twice a day prescribed by her playing clinic. Due to being sleepy when her son arrived, this is why he called EMS. Pt was sleepy on arrival. Patient is responsive to all questions but is drowsy sometimes slurring her speech. Denies fevers, chills, chest pain,palpitations, shortness of breath, dyspnea, nausea, vomiting, diarrhea, abdominal pain, hematuria,blurred vision, double vision, loss of vision, speech changes, LH, dizziness, syncope, headaches, wheezing, ST, URI, neck pain, weakness, bowel or bladder dysfunction, saddle anesthesia, numbness or tingling in bilateral upper or lower extremities equally, muscle paralysis, weakness in bilateral upper or lower extremities equally or rash. - REPRODUCTIVE Reproductive: DENIES: : Past Medical History - General Information source: Patient - Social History Smoking Status: Unknown if Ever Smoked Family History: DM, Hypertension - Past Medical History Cardiac Medical History: Reports: Hx Heart Attack, Hx Hypercholesterolemia Pulmonary Medical History: Reports: Hx COPD Endocrine Medical History: Reports: Hx Diabetes Mellitus Type 2 Renal/ Medical History: Denies: Hx Peritoneal Dialysis Psychiatric Medical History: Reports: Hx Depression Past Surgical History: Reports: Hx Cardiac Catheterization, Hx Cardiac Surgery - stent Vertical Provider Document - CONSTITUTIONAL Agree With Documented VS: Yes Exam Limitations: No Limitations General Appearance: WD/WN Notes: PHYSICAL EXAMINATION: reviewed vital signs by RN GENERAL: Well-appearing, well-nourished and in no acute distress. HEAD: Atraumatic, normocephalic. EYES: Pupils equal round and reactive to light, extraocular movements intact, conjunctiva are normal. ENT: Nares patent, oropharynx clear without exudates. Moist mucous membranes. NECK: Normal range of motion, supple without lymphadenopathy LUNGS: Breath sounds clear to auscultation bilaterally and equal. No wheezes rales or rhonchi. HEART: Regular rate and rhythm without murmurs ABDOMEN: Soft, nontender, nondistended abdomen. No guarding, no rebound. No masses appreciated. Female : deferred Musculoskeletal: Normal range of motion, no pitting or edema. No cyanosis. NEUROLOGICAL: Cranial nerves grossly intact. Slightly slurred speech normal gait. Normal sensory, motor exams. GCS 15 PSYCH: Normal mood, normal affect. SKIN: Warm, Dry, normal turgor, no rashes or lesions noted. - INFECTION CONTROL TRAVEL OUTSIDE OF THE [place] IN LAST 30 DAYS: No Course - Re-evaluation Re-evalutation: 01/10/20 18:09 Afebrile vital stable no distress. CBC negative for leukocytosis or anemia, CMP negative for hepatic or renal dysfunction, no electrolyte disturbances. EKG negative for STEMI, no ST segment changes, chest x-ray unremarkable. CT head unremarkable as well. 2 sets of troponins were negative Through course of 6 hours. Patient states she did take 15 mg of morphine this morning which she had taken a while which letter into overdose. Patient given IV fluids patient given 0.4 mg of Narcan IVP which she did wake up alert awake and orientated. Narcan did her bring her back to baseline. After 3 hours of observation and waiting for labs to resolve, patient demonstrated she is awake and alert and orientated able to carry conversation and ambulate without any issues. Her labs again are unremarkable discussed with patient that she needs to break her pain medication in half, to discuss pain medication with her prescribing physician as this may be too much as her tolerance has been lowered and she may not need this high of pain medication. Patient was agreeable with this plan of care. After performing a Medical Screening Examination, I estimate there is LOW risk for ACUTE GLAUCOMA, TEMPORAL ARTERITIS, MENINGITIS, INCRANIAL HEMORRHAGE, or ISCHEMIC STROKE thus I consider the discharge disposition reasonable. I have reevaluated this patient multiple times and no significant life threatening changes are noted. The patient and I have discussed the diagnosis and risks, and we agree with discharging home with close follow-up with the understanding that symptoms and presentations can change. We also discussed returning to the Emergency Department immediately if new or worsening symptoms occur. We have discussed the symptoms which are most concerning (e.g., changing or worsening symptoms, new numbness or weakness, vomiting, fever) that necessitate immediate return. - Laboratory Result Diagrams: 01/10/20 10:20 01/10/20 10:20 Discharge - Discharge Clinical Impression: Opioid overdose Condition: Stable Disposition: HOME, SELF-CARE Additional Instructions: You have taken more medication than you should have. After your evaluation and care, it is felt that your overdose is not likely to be harmful or of any significant consequences to you and you are being discharged. In the future, you should be careful not to take more medications than what is prescribed for you.All of your labs were negative. You were given Narcan due to opioid overdose. Please only take half of your prescribed pain medication as your full pain medication did cause you to go into overdose. Although your overdose does not seem to be of any danger to you at this time, if you develop any unusual or unexpected symptoms after your discharge, you should return to the Emergency Department immediately for re-evaluation. Return immediately for any new or worsening symptoms. Follow up with primary care provider, call tomorrow to make followup appoin tment. Prescriptions: Acetaminophen 1,000 mg PO Q6H #20 tablet Referrals: HENRIQUE JEAN BAPTISTE MD [Primary Care Provider] - Follow up as needed
[2020-01-10] MEDS ORDERED: NALOXONE HCL INJ/PF 0.4 MG/1 ML SDV IV ONE ×2 (10:36→14:48)
[2020-01-10 10:46] LABS: ABSOLUTE EOSINOPHILS # (AUTO) 0.2 10^3/uL (0.0-0.6); ABSOLUTE LYMPHOCYTES (AUTO) 4.4 10^3/uL (0.5-4.7); ABSOLUTE MONOCYTES (AUTO) 0.8 10^3/uL (0.1-1.4); ABSOLUTE NEUT (AUTO) 8.9 10^3/uL (1.7-8.2); BASOPHILS % (AUTO) 0.3 % (0-2); EOSINOPHILS % (AUTO) 1.1 % (0-6); HEMATOCRIT 42.3 % (36.0-47.0); HEMOGLOBIN 15.1 g/dL (12.0-15.5); LYMPHOCYTES % (AUTO) 30.7 % (13-45); MEAN CORPUSCULAR HEMOGLOBIN 32.2 pg (27.0-33.4); MEAN CORPUSCULAR HGB CONC 35.8 g/dL (32.0-36.0); MEAN CORPUSCULAR VOLUME 90 fl (80-97); MONOCYTES % (AUTO) 5.8 % (3-13); PLATELET COUNT 236 10^3/uL (150-450); RED CELL DISTRIBUTION WIDTH 13.1 % (11.5-14.0); SEGMENTED NEUTROPHILS % (AUTO) 62.1 % (42-78); TOTAL CELLS COUNTED % (AUTO) 100 %; WHITE BLOOD COUNT 14.4 10^3/uL (4.0-10.5)
--- NOTE | 2020-01-10 10:55 | RADIOLOGY REPORT (SQ) ---
EXAM DESCRIPTION: CHEST SINGLE VIEW IMAGES COMPLETED DATE/TIME: 01/10/2020 10:45 am REASON FOR STUDY: ams COMPARISON: None. EXAM PARAMETERS: NUMBER OF VIEWS: One view. TECHNIQUE: Single frontal radiographic view of the chest acquired. RADIATION DOSE: NA LIMITATIONS: None. FINDINGS: LUNGS AND PLEURA: No opacities, masses or pneumothorax. No pleural effusion. MEDIASTINUM AND HILAR STRUCTURES: No masses. Contour normal. HEART AND VASCULAR STRUCTURES: Heart normal in size. Normal vasculature. BONES: No acute findings. HARDWARE: Electronic stimulator device. OTHER: No other significant finding. IMPRESSION: NO ACUTE RADIOGRAPHIC FINDING IN THE CHEST. TECHNICAL DOCUMENTATION: JOB ID: [id number] 2010 [employer]- All Rights Reserved Reading location - IP/workstation name: [email or web address]
[2020-01-10 11:05] LABS: ALBUMIN 4.3 g/dL (3.5-5.0); ALKALINE PHOSPHATASE 56 U/L (38-126); ANION GAP 8 (5-19); ASPARTATE AMINO TRANSFERASE 19 U/L (14-36); BILIRUBIN,TOTAL 0.3 mg/dL (0.2-1.3); BLOOD UREA NITROGEN 22 mg/dL (7-20); CALCIUM 8.9 mg/dL (8.4-10.2); CARBON DIOXIDE 28 mmol/L (22-30); CHLORIDE 99 mmol/L (98-107); GLUCOSE 143 mg/dL (75-110); POTASSIUM 4.4 mmol/L (3.6-5.0); TOTAL PROTEIN 7.3 g/dL (6.3-8.2)
--- NOTE | 2020-01-10 11:10 | RADIOLOGY REPORT (SQ) ---
EXAM DESCRIPTION: CT HEAD WITHOUT IMAGES COMPLETED DATE/TIME: 01/10/2020 10:53 am REASON FOR STUDY: ams, slurred speech COMPARISON: [facility] from [facility] dated 03/01/2007. TECHNIQUE: Axial images acquired through the brain without intravenous contrast. Images reviewed wi th bone, brain and subdural windows. Additional sagittal and coronal reconstructions were generated. Images stored on PACS. All CT scanners at this facility use dose modulation, iterative reconstruction, and/or weight based d osing when appropriate to reduce radiation dose to as low as reasonably achievable (ALARA). [facility]: Dose Right [facility]: CareDose [facility]: Dose Right [facility]: Teradose 4D [facility]: Populr RADIATION DOSE: CT Rad equipment meets quality standard of care and radiation dose reduction techniq ues were employed. CTDIvol: 53.2 mGy. DLP: 1070 mGy-cm. mGy. LIMITATIONS: None. FINDINGS: VENTRICLES: Normal size and contour. CEREBRUM: No masses. No hemorrhage. No midline shift. No evidence for acute infarction. Normal gra y/white matter differentiation. No areas of low density in the white matter. CEREBELLUM: No masses. No hemorrhage. No alteration of density. No evidence for acute infarction. EXTRAAXIAL SPACES: Again seen is a large extra-axial fluid collection overlying the right frontal lob e. Maximum transverse measurement is 7.5 cm, prior measurement 8 cm. ORBITS AND GLOBE: No intra- or extraconal masses. Normal contour of globe without masses. CALVARIUM: No fracture. PARANASAL SINUSES: No fluid or mucosal thickening. SOFT TISSUES: No mass or hematoma. OTHER: No other significant finding. IMPRESSION: LARGE EXTRA-AXIAL FLUID COLLECTION OVERLYING THE RIGHT FRONTAL LOBE, UNCHANGED SINCE THE PRIOR STUDY IN 2006. THIS IS MOST LIKELY AN ARACHNOID CYST. NO OTHER SIGNIFICANT OR ACUTE FINDINGS . EVIDENCE OF ACUTE STROKE: NO. COMMENT: Quality ID # [id number]: Final reports with documentation of one or more dose reduction techniques (e.g., Automated exposure control, adjustment of the mA and/or kV according to patient size, use of iterative reconstruction technique) TECHNICAL DOCUMENTATION: JOB ID: [id number] 2010 [employer]- All Rights Reserved Reading location - IP/workstation name: [email or web address]
[2020-01-10 11:22] LABS: ALCOHOL < 10 mg/dL (NONE DETECTED)
[2020-01-10 11:30] LABS: APPEARANCE,URINE SLIGHTLY-CLOUDY; BILIRUBIN,URINE SMALL (NEGATIVE); COLOR,URINE YELLOW; GLUCOSE, URINE 50 mg/dL (NEGATIVE); KETONES,URINE TRACE mg/dL (NEGATIVE); LEUKOCYTE ESTERASE,URINE TRACE (NEGATIVE); NITRITE,URINE NEGATIVE (NEGATIVE); PROTEIN,URINE NEGATIVE (NEGATIVE); URINE SPECIFIC GRAVITY 1.032
[2020-01-10 11:49] LABS: URINE AMPHETAMINES SCREEN NEGATIVE; URINE BARBITURATES SCREEN NEGATIVE; URINE BENZODIAZEPINES SCREEN NEGATIVE; URINE COCAINE SCREEN NEGATIVE; URINE MARIJUANA (THC) SCREEN NEGATIVE; URINE METHADONE SCREEN NEGATIVE; URINE PHENCYCLIDINE SCREEN NEGATIVE
[2020-01-10 15:39] VITALS: BP 111/77
--- NOTE | 2020-01-10 21:25 | EKG REPORT ---
SEVERITY:- OTHERWISE NORMAL ECG - SINUS TACHYCARDIA : Confirmed by: Vicky Larios MD 10-Jan-2020 21:24:08
== END 2020-01-10 16:31 | disposition home or self-care (01) ==
LOC: ER 10:02
DX: T40.2X1A Poisoning by other opioids, accidental (unintentional), initial encounter (principal); M54.9 Dorsalgia, unspecified; G89.29 Other chronic pain; M19.90 Unspecified osteoarthritis, unspecified site; R47.81 Slurred speech; Y92.9 Unspecified place or not applicable; J44.9 Chronic obstructive pulmonary disease, unspecified; E11.9 Type 2 diabetes mellitus without complications; I25.2 Old myocardial infarction
CPT/HCPCS: 93005; 96376; 99285; 96374; 36415; 87086; 80307 ×2; 84702; 83735; 85025; 81025; 80053; 81001; 84484; 71045; 70450; 93010; J2310

== ENCOUNTER 2020-03-14 14:29 | Emergency (ER) | payer MEDICARE ==
--- NOTE | 2020-03-14 14:56 | ER Document Report ---
ED Neck/Back Problem - General Chief Complaint: Back Pain Stated Complaint: BACK PAIN Time Seen by Provider: 03/14/20 14:50 Primary Care Provider: HENRIQUE JEAN BAPTISTE MD [Primary Care Provider] - Follow up as needed Mode of Arrival: Wheelchair Information source: Patient Notes: 49-year-old female presents to ED for complaint of back pain. She states she ran out of her chronic pain management medications. She should not be out of either medication as yet according to the prescriptions in the pharmacy. She is on MS and on hydrocodone. She states she is not having any new symptoms this is just her normal chronic pain. I have discussed with her that we cannot write her medication refills for narcotics when she is on chronic pain management. I have told her we will give her 1 [place] now but she needs to contact her primary care pain management physician for any refills or any other narcotics. TRAVEL OUTSIDE OF THE [place] IN LAST 30 DAYS: No - HPI Patient complains to provider of: Lower back Onset: Other - Chronic Onset: Chronic Quality of pain: Achy Severity: Severe Pain Level: 5 Context: Lifting, Turning Recent injury: No Associated symptoms: Like prior neck/back pain, Lower back pain. denies: Motor loss, Numbness/tingling, Radiation to leg Exacerbated by: Movement of trunk Relieved by: Nothing Similar symptoms previously: Yes Recently seen / treated by doctor: Yes - Related Data Allergies/Adverse Reactions: aspirin Allergy (Verified 11/21/19 09:49) Anaphylaxis chicken derived Allergy (Verified 11/21/19 09:49) Anaphylaxis egg Allergy (Verified 11/21/19 09:49) Anaphylaxis Egg Derived Allergy (Verified 11/21/19 09:49) Anaphylaxis influenza A (H1N1) virus vaccine m-kevon-split 2008 [From influenza A (H1N1)] Allergy (Verified 03/14/20 14:51) Penicillins Allergy (Verified 11/21/19 09:49) Anaphylaxis turkey Allergy (Verified 11/21/19 09:49) Anaphylaxis iv dye Allergy (Uncoded 11/21/19 09:49) Anaphylaxis Past Medical History - General Information source: Patient - Social History Smoking Status: Current Every Day Smoker Cigarette use (# per day): Yes - Pack per day Smoking Education Provided: Yes Frequency of alcohol use: None Drug Abuse: None Family History: DM, Hypertension Patient has suicidal ideation: No Patient has homicidal ideation: No - Past Medical History Cardiac Medical History: Reports: Hx Heart Attack, Hx Hypercholesterolemia Pulmonary Medical History: Reports: Hx COPD EENT Medical History: Reports: None Neurological Medical History: Reports: None Endocrine Medical History: Reports: Hx Diabetes Mellitus Type 2 Renal/ Medical History: Reports: None Malignancy Medical History: Reports: None GI Medical History: Reports: None Musculoskeletal Medical History: Reports Hx Arthritis, Reports Hx Musculoskeletal Deformity, Reports Hx Musculoskeletal Trauma Psychiatric Medical History: Reports: Hx Depression Traumatic Medical History: Reports: None Infectious Medical History: Reports: None Past Surgical History: Reports: Hx Cardiac Catheterization, Hx Cardiac Surgery - stent - Immunizations Immunizations up to date: Yes Hx Diphtheria, Pertussis, Tetanus Vaccination: Yes Review of Systems - Review of Systems Constitutional: No symptoms reported EENT: No symptoms reported Cardiovascular: No symptoms reported Respiratory: No symptoms reported Gastrointestinal: No symptoms reported Genitourinary: No symptoms reported Female Genitourinary: No symptoms reported Musculoskeletal: No symptoms reported Skin: No symptoms reported Hematologic/Lymphatic: No symptoms reported Neurological/Psychological: No symptoms reported Physical Exam - Vital signs Vitals: Temp Pulse Resp BP Pulse Ox 98.6 F 111 H 19 128/97 H 97 03/14/20 14:34 03/14/20 14:34 03/14/20 14:34 03/14/20 14:34 03/14/20 14:34 Interpretation: Normal - General General appearance: Appears well, Alert - HEENT Head: Normocephalic, Atraumatic Eyes: Normal Pupils: PERRL - Respiratory Respiratory status: No respiratory distress Chest status: Nontender Breath sounds: Normal Chest palpation: Normal - Cardiovascular Rhythm: Regular Heart sounds: Normal auscultation Murmur: No - Abdominal Inspection: Normal Distension: No distension Bowel sounds: Normal Tenderness: Nontender Organomegaly: No organomegaly - Back Back: Normal, Tender, Vertebra tenderness. No: Deformity/step-off, CVA tenderness, Scars, Scoliosis Notes: Numbness or symptoms of cauda equina, no loss control of bowel bladder, no saddle anesthesia, no loss control of sensation to the lower extremities. - Extremities General upper extremity: Normal inspection, Nontender, Normal color, Normal ROM, Normal temperature General lower extremity: Normal inspection, Nontender, Normal color, Normal ROM, Normal temperature, Normal weight bearing. No: Watson's sign - Neurological Neuro grossly intact: Yes Cognition: Normal Orientation: AAOx4 [place] Coma Scale Eye Opening: Spontaneous [place] Coma Scale Verbal: Oriented [place] Coma Scale Motor: Obeys Commands [place] Coma Scale Total: 15 Speech: Normal Motor strength normal: LUE, RUE, LLE, RLE Sensory: Normal - Psychological Associated symptoms: Normal affect, Normal mood - Skin Skin Temperature: Warm Skin Moisture: Dry Skin Color: Normal Course - Vital Signs Vital signs: Temp Pulse Resp BP Pulse Ox 98.6 F 96 19 122/88 H 97 03/14/20 14:51 03/14/20 15:09 03/14/20 14:34 03/14/20 15:03/14/20 14:34 Discharge - Discharge Clinical Impression: Chronic back pain Qualifiers: Back pain location: low back pain Back pain laterality: bilateral Sciatica presence: without sciatica Qualified Code(s): M54.5 - Low back pain Condition: Stable Disposition: HOME, SELF-CARE Additional Instructions: Chronic Pain Control Stress, inactivity, and depression make pain more severe regardless of the cause of the pain. Stress and poor physical condition can cause pain such as headaches and backache. Relaxation: Rest in a quiet place with your eyes closed for 20 minutes twice daily. Concentrate on a pleasant image, or simply "feel" your breathing. Clear your mind. Stress management: Deal with your "stressors." Either take action, or eliminate the stressor from your life. Don't let things hang over you. Accept those things you can't change. Nutrition: Eat small, balanced meals -- don't skip, don't overeat. Meals should be high-carbohydrate, low-sugar, low-fat. Exercise: Exercise helps painful conditions and eases stress. Get 30 minutes of moderate exercise, five days a week. Do an activity that does not flare your pain. Precautions: Pain which continues to disrupt daily activities, or which changes in nature, requires a medical evaluation. Pain Clinic referral is available. We do not manage chronic pain in the Emergency Department. We will try to appropriately help you through an acute flare of your chronic painful condition, but for on-going chronic pain that does not improve, you will need to see your private doctor or interior painter. We do not provide repeated medication management of chronic painful conditions. If you wish, we can provide the name of local pain management physicians. Oral Narcotic Medication You have been given a [place] for pain control. This medication is a narcotic. It's best taken with food, as nausea can result if taken on an empty stomach. Don't operate machinery or drive within six hours of taking this medication. Do not combine this medicine with alcohol, or with any medication which can cause sedation (such as cold tablets or sleeping pills) unless you get permission from the physician. Narcotics tend to cause constipation. If possible, drink plenty of fluids and eat a diet high in fiber and fruits. Acetaminophen Acetaminophen may be taken for pain relief or fever control. It's much safer than aspirin, offering a wider range of "safe" dosages. It is safe during . Some brand names are Tylenol, Panadol, Datril, Anacin 3, Tempra, and Liquiprin. Acetaminophen can be repeated every four hours. The following are maximum recommended dosages: WEIGHT Dose Drops Elixir Chewable(80mg) (LBS.) drprs=droppers tsp=teaspoon 6 40 mg .4 ml (1/2) 6-11 80 mg .8 ml (full) 1/2 tsp 1 tab 12-16 120 mg 1 1/2 drprs 3/4 tsp 1 1/2 tabs 17-23 160 mg 2 drprs 1 tsp 2 tabs 24-30 240 mg 3 drprs 1 1/2 tsp 3 tabs 30-35 320 mg 2 tsp 4 tabs 36-41 360 mg 2 1/4 tsp 4 1/2 tabs 42-47 400 mg 2 1/2 tsp 5 tabs 48-53 480 mg 3 tsp 6 tabs 54-59 520 mg 3 1/4 tsp 6 1/2 tabs 60-64 560 mg 3 1/2 tsp 7 tabs 65-70 600 mg 3 3/4 tsp 7 1/2 tabs 71-76 640 mg 4 tsp 8 tabs 77-82 720 mg 4 1/2 tsp 9 tabs 83-88 800 mg 5 tsp 10 tabs >89 pounds or adults 650 mg to 900 mg Acetaminophen can be repeated every four hours. Maximum daily dose not to exceed 4000 mg. These maximum recommended dosages are slightly higher than the dosages written on the product container, but these dosages are very safe and well below the toxic dosage for acetaminophen. FOLLOW-UP CARE: If you have been referred to a physician for follow-up care, call the physicians office for an appointment as you were instructed or within the next two days. If you experience worsening or a significant change in your symptoms, notify the physician immediately or return to the Emergency Department at any time for re-evaluation. Forms: Elevated Blood Pressure Referrals: HENRIQUE JEAN BAPTISTE MD [Primary Care Provider] - Follow up as needed
[2020-03-14] MEDS ORDERED: HYDROCODONE/ACETAMINOPHEN 5-325 MG TABLET PO ONE (15:00)
[2020-03-14 15:11] VITALS: BP 122/88
== END 2020-03-14 15:12 | disposition home or self-care (01) ==
LOC: ER 14:29
DX: M54.5 Low back pain (principal); M54.9 Dorsalgia, unspecified; G89.29 Other chronic pain; Z79.899 Other long term (current) drug therapy; Z88.8 Allergy status to other drugs, medicaments and biological substances; F17.210 Nicotine dependence, cigarettes, uncomplicated; I25.2 Old myocardial infarction; J44.9 Chronic obstructive pulmonary disease, unspecified; E11.9 Type 2 diabetes mellitus without complications
CPT/HCPCS: 99283; A9270